=== PATIENT | female | born 1990 | race Caucasian/White ===

== ENCOUNTER 2022-01-26 13:07 | Emergency (ER) | payer OTHER, SELFPAY ==
[2022-01-26 13:19] VITALS: BP 128/86; PULSE 96; RESP 16; TEMP 36.6; O2SAT 97; BMI 39.2
--- NOTE | 2022-01-26 13:53 | ED.ALLEREA ---
HPI - Allergic Reaction General Date Seen: 01/26/22 Chief complaint: Allergic Reaction Stated complaint: Allergic Reaction Time Seen by Provider: 01/26/22 13:39 Source: patient Mode of arrival: ambulatory Limitations: no limitations History of Present Illness HPI narrative: Patient is a 31-year-old female who presents here for allergic reaction, she 1st went to Urgent Care was sent here. She noted the hives yesterday morning, took some loratadine for this, the hives are primarily on areas of exposed to clothing, but today seemed a little bit worse, she took 25 mg of Benadryl at 6:30 a.m. this morning, noted that her lips were swelling, and some tingling in the back of her throat. She then proceeded urgent care and was sent here. Has no problem speaking, swallowing, there is no nausea vomiting or diarrhea. She denies any shortness of breath or wheezing, does have a history of asthma but has not used her inhaler. She had an IUD out on Tuesday, no new medications, no other exposures notable. Denies any fevers or chills or viral type illness leading up to this. MD complaint: allergic reaction, hives and facial swelling Onset (ago): day(s) Exposure: unknown Symptoms: rash and lip swelling Severity: moderate Treatment prior to arrival: benadryl Previous Allergic Reaction History: none Related Data Home Medications Medication Instructions Recorded Confirmed albuterol sulfate 90 mcg/actuation 2 inhalation PRN 01/22/22 01/22/22 aerosol inhaler vits no.126-ferrous fum 1 tab PO DAILY 01/22/22 01/22/22 28 mg iron-folic acid 800 mcg tablet (Classic ) sertraline 50 mg tablet 50 mg PO QDAY 01/22/22 01/22/22 Previous Rx's Medication Instructions Recorded epinephrine 0.3 mg/0.3 mL 0.3 ml IM Q5-15M PRN #2 ea 01/26/22 injection, auto-injector prednisone 20 mg tablet 20 mg PO BID #10 tabs 01/26/22 Allergies Allergy/AdvReac Type Severity Reaction Status Date / Time No Known Drug Allergies Allergy Verified 01/26/22 13:22 Review of Systems Status of ROS Reports: 10 or more systems reviewed and unremarkable except as noted in History and below PFSH FORMERLY [facility], 1928–1983 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 Smoking Status: Never smoker How often do you have a drink containing alcohol: never AUDIT-C Alcohol total score: 0 Non-prescribed substance use: denies use service: No Exam Narrative: Exam Narrative: Patient is seen initially in the hallway then transferred to room 1, she is speaking to me in full sentences, there is no speech difficulty. She is nontoxic. Her pupils are equal round reactive to light there is no scleral icterus or redness to TMs are normal her oropharynx reveals some lip swelling, of around her lips, but there is no other or oropharyngeal swelling noted of her tongue or tonsils. Her neck is supple full range of motion, no meningismus, no lymphadenopathy. Her chest is good air entry bilaterally with no wheezing crackles noted easy respirations are noted, cardiovascular S1-S2 were normal there is no S3-S4 clicks murmurs or gallops noted, her abdomen is soft there is no guarding no organomegaly noted. And no tenderness. Her extremities are all normal normal neurologic function symmetrically strong, and proximally and distally muscle strength is assessed and normal, there is a rash consistent with urticaria noted primarily on her truncal region. Const: Vital Signs, click to edit/add: Vital Signs - 24 hr 01/26/22 13:19 01/26/22 14:27 01/26/22 15:00 Temperature 97.9 F Pulse Rate [Pulse Oximeter] 96 93 84 Respiratory Rate 16 16 16 Blood Pressure [Ri ght Upper Arm] 128/86 112/81 115/78 Pulse Oximetry 97 98 97 Oxygen Delivery Me thod Room Air Room Air Room Air 01/26/22 15:30 01/26/22 16:04 Temperature Pulse Rate [Pulse Oximeter] 84 97 Respiratory Rate 16 16 Blood Pressure [Ri ght Upper Arm] 109/81 112/76 Pulse Oximetry 97 98 Oxygen Delivery Me thod Room Air Room Air Documenting provider has reviewed patient's vital signs: yes Course Course Hospital Course: I evaluated the patient multiple times, during her time here she has watch for 4 hours, she remained stable both vital E, and her lip swelling decreased as did her rash, she felt comfortable to go home I think it would be reasonable let her go home, she can use some Benadryl for this along with prednisone, and I will give her an EpiPen I do not know what caused the allergic reaction, but there is clearly was some angioedema associated with this Vital Signs Vital signs: Initial Vital Signs Temperature 97.9 F 01/26/22 13:19 Temperature Source Oral 01/26/22 13:19 Pulse Rate 96 01/26/22 13:19 Pulse Rhythm 01/26/22 13:19 Pulse Strength 3+ Normal 01/26/22 13:19 Respiratory Rate 16 01/26/22 13:19 Blood Pressure 128/86 01/26/22 13:19 Blood Pressure Mean 100 01/26/22 13:19 Blood Pressure Position Sitting 01/26/22 13:19 Pulse Oximetry 97 01/26/22 13:19 Oxygen Delivery Method 01/26/22 13:19 Vital Signs Temperature 97.9 F 01/26/22 13:19 Pulse Rate 96 01/26/22 13:19 Respiratory Rate 16 01/26/22 13:19 Blood Pressure 128/86 01/26/22 13:19 Pulse Oximetry 97 01/26/22 13:19 Oxygen Delivery Method 01/26/22 13:19 Temperature 97.9 F 01/26/22 13:19 Pulse Rate 97 01/26/22 16:04 Respiratory Rate 16 01/26/22 16:04 Blood Pressure 112/76 01/26/22 16:04 Pulse Oximetry 98 01/26/22 16:04 Oxygen Delivery Method 01/26/22 16:04 MDM - Allergic Reaction MDM Narrative Medical decision making narrative: Differential diagnosis include but are not limited to contact dermatitis, allergic reaction, shingles, impetigo, seborrheic dermatitis, Michael Prince syndrome, ITP, meningococcus, HSP Differential Diagnosis Differential diagnosis: Likely anaphylaxis, allergic reaction, angioedema, contact dermatitis, adverse reaction to drug, viral enanthem and urticaria Medical Records Attestation: I reviewed the patient's medical records. Discharge Plan Discharge Clinical Impression: Urticaria, Angioedema, Allergic reaction Patient Disposition: Home, Self-Care Condition: Improved Instructions: Urticaria (ED), Angioedema (ED), General Allergic Reaction (ED) Additional Instructions: Home rest Benadryl 50 mg every 6 hours as this will make you tired, it will off set the fact the prednisone will make you slightly crazy, take the prednisone for 5 days, I will give you prescription for an EpiPen also, if increasing facial swelling, breathing problems, or other issues please come back. Not sure what caused this reaction, could be something as simple as a virus, about 50-60% of the time we never figure this out Prescriptions: New prednisone 20 mg tablet 20 mg PO BID Qty: 10 0RF epinephrine 0.3 mg/0.3 mL auto-injector 0.3 ml IM Q5-15M PRNQty: 2 0RF Rx Instructions: do not exceed 2 doses per episode No Action sertraline 50 mg tablet 50 mg PO QDAY Label Comments: TAKE 1/2 TABLET BY MOUTH EVERY DAY FOR 1 WEEK. INCREASE TO 1 TABLET Classic 28 mg iron- 800 mcg tablet 1 tab PO DAILY albuterol sulfate 90 mcg/actuation HFA aerosol inhaler 2 inhalation PRN Follow Up/Referrals: Rhoda Gusman MD [Primary Care Provider] - Stand Alone Forms: [employer] Info Instructions
[2022-01-26] MEDS: diphenhydrAMINE 25 MG CAPSULE 50 MG PO (13:54)
[2022-01-26] MEDS: predniSONE 20 MG TABLET 60 MG PO (13:54)
[2022-01-26] MEDS: EPINEPHrine 0.3 MG PEN IM (13:55)
--- OUTSIDE RECORDS SUMMARY | 2022-01-26 14:07 | XMS_ITS | Encounter Summary ---
:1990 Author Organization [facility] Address [address], [place] [address] Care Team Providers Name Role Phone Shakira Bright DO Primary Care Provider Reason for Referral Procedure/Equipment (Routine) - Incomplete Specialty Diagnoses / Procedures Referred By Contact Refer red To Contact Diagnoses Pain of left heel Samantha Paez MD Procedures Airselect Elite/Standard Tall Boot([id number]) [address] [place], [place] [address] Referral ID Status Reason Start Date Expiration Date Visits V isits Requested Authorized [id number] Incomplete 03/16/2017 06/15/2018 1 1 SCRIPT EVALUATOR Therapies (Routine) - Closed Specialty Diagnoses / Procedures Referred By Contact Refer red To Contact Physical Therapy Diagnoses Pain of left heel Samantha Paez MD [facility] [address] [place], [place] [address] [place] [address] Phone: Fax: Referral ID Status Reason Start Date Expiration Date Visits Requ ested Visits Authorized [id number] Closed 03/14/2017 05/13/2017 1 1 Scheduling Instructions Your provider has recommended an appoint ment with [facility]. You may call [phone] to schedule your appoi ntment. If you do not schedule an appointment within the next 1 to 3 business days, we will call you to help arrange your appointment. We suggest you call your [employer] insurance company about your coverage and benefits for this appointment. SCRIPT EVALUATOR Procedure/Equipment (Routine) - Incomplete Specialty Diagnoses / Procedures Referred By Contact Refer red To Contact Diagnoses Pain of left heel Samantha Paez MD Procedures XR Calcaneus Lt 2+ Views [address] [facility] [address] [place], [place] [address] Referral ID Status Reason Start Date Expiration Date Visits V isits Requested Authorized [id number] Incomplete 03/14/2017 06/13/2018 1 1 SCRIPT EVALUATOR Reason for Visit Reason Comments Foot Pain or Injury left Encounter Details Date Type Department Care Team Description 03/14/2017 Office Visit [facility] Samantha Miramontes V, Pain of left heel Orthopedic Urgent MD (Primary Dx) Care [address] [facility] [address] [facility] [place], [place] [address] [phone] 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 Tobacco Use Types Packs/Day Years Used Date Smoking Tobacco: Never Smokeless Tobacco: Never Alcohol Use Standard Drinks/Week Comments Yes 0 (1 standard drink = 0.6 oz pure alcoho l) Sex Assigned at Date Recorded Not on file documented as of this encounter Last Filed Vital Signs Vital Sign Reading Time Taken Comments Blood Pressure 151/85 03/14/2017 12:13 PM TRANSCRIPT EVALUATOR Pulse - - Temperature 36.6 ??C (97.9 ??F) 03/14/2017 12:13 PM TRANSCRIPT EVALUATOR Respiratory Rate - - Oxygen Saturation - - Inhaled Oxygen Concentration - - Weight - - Height - - Body Mass Index - - documented in this encounter Patient Instructions Patient InstructionsOralia Murcia RN - 03/14/2017 10:[address] Jeannine MD [facility] [place] Please fax all paperwork correspondence to [phone] [facility] Nurse Line: [phone] Please contact [facility] Nurse line for all requests and questions. Medication Requests: Prescriptions are not filled on Weekends or on Weekdays after 3:00PM For all medication refills: Request a refill using MyChart or contact your Pharmacy To schedule appointments:[phone] Physical therapy as ordered Boot as ordered by MD Follow up in 4-6 weeks SCRIPT EVALUATOR documented in this encounter Progress Notes Samantha Paez MD - 03/16/2017 12:38 PM CST NAME: JOLLY CAREY MR#: [id number] CSN: [id number] AUTHENTICATING CLINICIAN: Samantha Paez MD CONFIRM #: [id number] LOC: CLINIC PROGRESS NOTE DATE OF VISIT: 03/14/2017 : 1990 SUBJECTIVE: Jolly is a 26-year-old female, who presents for evaluation of left heel pain that has been presentfor the last 3-6 months but worse over the last 1 month. Symptoms began 3-6 months ago in both heelsalong the plantar aspect of the heel in the region of the medial calcaneus. She felt symptoms were related to plantar fasciitis and has been treating at home with stretching and arch support. She notesthat the right heel pain has completely resolved but she has had persistent symptoms in the left heel. Over the last 1 month, symptoms have been getting increasingly worse and she now notes pain in theregion of the left Achilles as well. She has been using ice, stretching, has been careful about wearing a good supportive shoe and using wat-ces-rwsyh arch support inserts. She does spend a lot of time on her feet each day. 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 This involves a lot of walking and standing. PAST MEDICAL HISTORY: Outlined and reviewed in Epic. CURRENT MEDICATIONS: Outlined and reviewed in Epic. ALLERGIES: Outlined and reviewed in [employer]. 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 REVIEW OF SYSTEMS: Negative for fever, rash, numbness or tingling, diabetes. She does have a history of reflux. PHYSICAL EXAM: VITAL SIGNS: Height 5 feet 7 inches, weight 247 pounds, blood pressure 131/85, temp 97.7. Pain is 4/10. GENERAL: Pleasant, 26-year-old female, no acute distress. LEFT HEEL: She is exquisitely tender with palpation along the medial aspect of the calcaneus, nontender with palpation over the plantar fascia itself, no palpable crepitation. She has a very tight heelcord and has significant tenderness with palpation at the Achilles tendon insertion on the calcaneus. She has minimal thickening of the Achilles tendon. The tendon is intact by palpation. She has a normal Kearney's test. She has a negative Homans sign. She is nontender over the medial and lateral malleoli or over the midfoot. She has moderate increase in heel pain with plantar and dorsiflexion of the foot against resistance. No pain with inversion or eversion against resistance. She has good cap refill, normal dorsalis pedis pulse and normal sensation. Calcaneal squeeze test is positive. IMAGING: X-ray of the calcaneus is done today and is negative for obvious fracture or sign of stress fracture. IMPRESSION: Left heel pain due to plantar fasciitis and Achilles tendinopathy. PLAN: 1.Diagnosis and treatment recommendations discussed with the patient. We discussed trial of conservative measures, and the patient is agreeable. Given the difficulty she is having with weightbearing, will try and quiet this down a bit by putting her in a boot. Will add 1 wedge if needed. As soon as she is comfortable, she may wean out of the wedge. As symptoms are improving, she will wean out of the walking boot. She can be weightbearing as tolerated in the boot. 2.We will start her on some physical therapy to address these issues as well. 3.We will see her back in 4-6 weeks for a recheck; however, we can see her back sooner if symptoms are not improving with the use of the boot. Would consider advanced imaging with MRI to rule out calcaneal stress fracture if that is the case. RVP:JOE C: R:03/16/17 12:38 CONFIRM#:[id number] SCRIPT EVALUATOR Michelle Garcia, RN - 03/14/2017 10:30 AM CST Blood pressure out of normal range. Patient advised to follow up with primary care provider regarding blood pressure reading today. Michelle Lopez, TRISTAN 03/14/2017, 12:14 PM SCRIPT EVALUATOR documented in this encounter Plan of Treatment Scheduled Referrals Name Type Priority Associated Diagnoses Order S chedule Physical Therapy Referral Routine Pain of left heel Ordere d: 03/14/2017 documented as of this encounter Results XR Calcaneus Lt 2+ Views (03/14/2017 1:20 PM TRANSCRIPT EVALUATOR) Anatomical Region Laterality Modality Lower Extremity, Foot, Foot & Ankle Comp uted Radiography Specimen (Source) Anatomical Collection Method Collection Time Re ceived Time Location / / Volume Laterality 03/14/2017 1:00 PM TRANSCRIPT EVALUATOR Narrative 03/14/2017 1:22 PM TRANSCRIPT EVALUATOR COMPARISON: ??None. FINDINGS: ??No significant bone or joint abnormality is noted. Procedure Note Marko Travis MD - 03/14/2017Formatti ng of this note might be different from the original. COMPARISON: None. FINDINGS: No significant bone or joint a bnormality is noted. Samantha Saravia MD RAD GD documented in this encounter Visit Diagnoses Diagnosis Pain of left heel - Primary Pain in limb Pain of left heel Pain in limb documented in this encounter Care Teams Configuration Engineer Relationship Specialty Start Date End Date Shakira Bright DO PCP - General Family Practice 02/02/16 [address] [place] [address] documented as of this encounter
--- OUTSIDE RECORDS SUMMARY | 2022-01-26 14:07 | XMS_ITS | Encounter Summary ---
:1990 Author Organization [facility] Address [address] [address] Care Team Providers Name Role Phone Shakira Bright DO Primary Care Provider Reason for Visit Reason Comments DEPRESSION ANXIETY Encounter Details Date Type Department Care Team Description 08/17/2016 Office Visit [facility] [address] Shakira Bright, De pression, major, single episode, moderate (HRC); Family Medicine DO SARAVANAN (generalized anxiety disorder) [address] [facility] [place] [address] [phone] (Wo rk) 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 Tobacco Use Types Packs/Day Years Used Date Smoking Tobacco: Never Alcohol Use Standard Drinks/Week Comments Yes 0 (1 standard drink = 0.6 oz pure alcoho l) Sex Assigned at Date Recorded Not on file documented as of this encounter Last Filed Vital Signs Vital Sign Reading Time Taken Comments Blood Pressure 116/62 08/17/2016 7:56 AM CDT Pulse 68 08/17/2016 7:56 AM CDT Temperature - - Respiratory Rate - - Oxygen Saturation - - Inhaled Oxygen Concentration - - Weight 115.3 kg (254 lb 3.2 oz) 08/17/2016 7:56 AM CDT Height - - Body Mass Index 39.81 02/12/2016 8:08 AM SURFACE ROOM SHOP OPTICIAN documented in this encounter Progress Notes Shakira Bright DO - 08/17/2016 8:00 AM CDT Subjective: Jolly Walker is a 26 y.o. female who presents for follow up of depression and anxiety. Current symptoms include hypersomnia, fatigue and feeling anxious. Patient denies recurrent thoughts of , suicidal thoughts without plan and suicidal thoughts with specific plan. She denies current suicidal and homicidal plan or intent. She complains of the following side effects from the treatment: none. Patient's medications, allergies, past medical, surgical, social and family histories were reviewed and updated as appropriate. Objective: BP 116/62 Pulse 68 Wt 254 lb 3.2 oz (115.3 kg) BMI 39.81 kg/m2 General: alert, cooperative, no distress, appears stated age Affect & Behavior: good grooming, full facial expressions, normal speech pattern and content, normal thought patterns, normal perception, good insight, normal reasoning Assessment: Depression, gradually improving Anxiety, gradually improving Plan: Rx: Celexa Handouts describing disease, natural history, and treatment were given to the patient. Reviewed concept of anxiety as biochemical imbalance of neurotransmitters and rationale for treatment. Instructed patient to contact office or on-call physician promptly should condition worsen or any new symptoms appear and provided on-call telephone numbers. IF THE PATIENT HAS ANY SUICIDAL OR HOMICIDAL IDEATION, CALL THE OFFICE, DISCUSS WITH A SUPPORT MEMBER, OR GO TO THE ER IMMEDIATELY. Patient was a greeable with this plan. Follow up: 3 months Spent 20 minutes (>50% of visit) discussing the risks of anxiety disorder, depression, the pathophysiology, etiology, risks, and principles of treatment. documented in this encounter Plan of Treatment Not on filedocumented as of this encounter Visit Diagnoses Diagnosis Depression, major, single episode, moder ate (HRC) Major depressive disorder, single episod e, moderate SARAVANAN (generalized anxiety disorder) (HRC) Generalized anxiety disorder documented in this encounter Care Teams Associate Professor Of Media Arts Relationship Specialty Start Date End Date Shakira Bright DO PCP - General Family Practice 02/02/[address] [place] [id number] documented as of this encounter
--- OUTSIDE RECORDS SUMMARY | 2022-01-26 14:07 | XMS_ITS | Encounter Summary ---
:1990 [facility] Address [address], [place] [address] Care Team Providers Name Role Phone Shakira Chaney DO Primary Care Provider Reason for Visit Reason Comments Refill citalopram (CELEXA) 20 MG ta blet [Pharmacy Med Name: CITALOPRAM HBR 20 MG TABLET] Encounter Details Date Type Department Care Team Description 02/03/[address] [facility] [address] Shakira Chaney, Re fill (citalopram Family Medicine DO (CELEXA) 20 MG tablet [address] [Ph armacy Med Name: [address] CITALOPRAM HBR 20 MG [place], [place] TA BLET]) [id number] (Wo rk) 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 Tobacco Use Types Packs/Day Years Used Date Smoking Tobacco: Never Alcohol Use Standard Drinks/Week Comments Yes 0 (1 standard drink = 0.6 oz pure alcoho l) Sex Assigned at Date Recorded Not on file documented as of this encounter Nursing Notes Dale Apple RN - 02/03/2017 8:50 AM CST Further assistance needed to complete refill request Reason: Medication newly ordered within past 12 months. Next Steps: Review pended order for accuracy. Sign if appropriate. Document if appt. or lab is needed for further refills. Route to [facility]. pool Requested Prescriptions Pending Prescriptions Disp Refills ??? citalopram (CELEXA) 20 MG tablet [Pharmacy Med Name: CITALOPRAM HBR 20 MG TABLET] 90 Tab 2 Sig: TAKE 1 TAB BY MOUTH DAILY. ECT DRILLING ENGINEER Interface, Out [employer]dex Prov Query - 02/03/2017 12:58 AM CST citalopram (CELEXA) 20 MG tablet [Pharmacy Med Name: CITALOPRAM HBR 20 MG TABLET] Medication started: 07/23/2016 Last ordered by SHAKIRA CHANEY: 08/17/2016 (170 days ago) QTY: 90, Refills: 1, Sig: take 1 tab by mouth daily. (unchanged) -> Refill x 9 months, qty: 90, refills: 2 (until due for an office visit) Last qualifying visit: 08/17/2016 (with SHAKIRA CHANEY) Next scheduled visit: None SBP: 116 mm Hg on 08/17/2016 DBP: 62 mm Hg on 08/17/2016 Powered by [employer], Reference: [id number], 02/03/2017 12:57:59 AM Jose Roberto DOAN: [id number] FM REFILL ([id number]) ECT DRILLING ENGINEER documented in this encounter Plan of Treatment Not on filedocumented as of this encounter Visit Diagnoses Diagnosis Depression, major, single episode, moder ate (HRC) Major depressive disorder, single episod e, moderate SARAVANAN (generalized anxiety disorder) (HRC) Generalized anxiety disorder documented in this encounter Care Teams Impregnating Tank Operator Relationship Specialty Start Date End Date Shakira Chaney DO PCP - General Family Practice 02/02/16 [address] [place] [address] documented as of this encounter
--- OUTSIDE RECORDS SUMMARY | 2022-01-26 14:07 | XMS_ITS | Encounter Summary ---
:1990 [facility] Address [address], [place] [address] Care Team Providers Name Role Phone Shakira Bright DO Primary Care Provider Reason for Referral Therapies (Routine) - Closed Specialty Diagnoses / Procedures Referred By Contact Refer red To Contact Diagnoses Vestibular neuronitis, unspecified laterality Shakira Bright DO [address] [place], [place] [address] Referral ID Status Reason Start Date Expiration Date Visits Requ ested Visits Authorized [id number] Closed 08/15/2017 10/14/2017 1 1 Scheduling Instructions Your provider has recommended an appoint ment with [facility]. You may call [phone] to schedule your a ppointment. If you do not schedule an appointment within the next 1 to 3 in , we will call you to help arrange your appointment. We suggest you call [employer] about your coverage and benefits for this appointme nt. Reason for Visit Reason Comments Follow-up Encounter Details Date Type Department Care Team Description 08/15/2017 Office Visit [facility] [address] Shakira Bright [address] [facility] DO neuronitis, [address] [facility] [address] laterality (Primary [place], [place]x ) [address] [phone] (Wo rk) 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 Tobacco Use Types Packs/Day Years Used Date Smoking Tobacco: Never Smokeless Tobacco: Never Alcohol Use Standard Drinks/Week Comments Yes 0 (1 standard drink = 0.6 oz pure alcoho l) occasionally Sex Assigned at Date Recorded Not on file documented as of this encounter Last Filed Vital Signs Vital Sign Reading Time Taken Comments Blood Pressure 112/80 08/15/2017 4:07 PM CDT Pulse 84 08/15/2017 4:07 PM CDT Temperature - - Respiratory Rate - - Oxygen Saturation - - Inhaled Oxygen Concentration - - Weight 122 kg (269 lb) 08/15/2017 4:07 PM CDT Height 170.2 cm (5' 7) 08/15/2017 4:07 PM CDT Body Mass Index 42.13 08/15/2017 4:07 PM CDT documented in this encounter Progress Notes Shakira Bright, DO - 08/15/2017 3:40 PM CDT Subjective: Patient ID: Jolly Lara is a 27 y.o. female. Chief Complaint: HPI Comments: About a month ago she came in presenting with extreme dizziness. At that time she could barely walk without holding onto something. She was diagnosed with vestibular neuritis. I treated her with a short course of steroids and gave her Zofran. After finishing this she was doing pretty well. She was good for approximately 2.5 weeks. Recently she has started having increasing dizzy sensation. After having a return of the dizziness she started having nausea. The nausea is related to any type of foods now. She is also been extremely fatigued. She did taken at home during test which was negative. It is very low risk that she has . She is coming in today because she wants to get ahead of the dizziness before his as extreme as it was last time. DIZZINESS This is a recurrent problem. The current episode started 1 to 4 weeks ago. The problem occurs intermittently. The problem has been waxing and waning. Associated symptoms include nausea and vertigo. Pertinent negatives include no abdominal pain, anorexia, arthralgias, change in bowel habit, chest pain,chills, congestion, coughing, diaphoresis, fatigue, fever, headaches, joint swelling, myalgias, neckpain, numbness, rash, sore throat, swollen glands, urinary symptoms, visual change, vomiting or weakness. Review of Systems Constitutional: Negative for chills, diaphoresis, fatigue and fever. HENT: Negative for congestion and sore throat. Respiratory: Negative for cough. Cardiovascular: Negative for chest pain. Gastrointestinal: Positive for nausea. Negative for abdominal pain, anorexia, change in bowel habit and vomiting. Musculoskeletal: Negative for arthralgias, joint swelling, myalgias and neck pain. Skin: Negative for rash. Neurological: Positive for dizziness and vertigo. Negative for weakness, numbness and headaches. Objective: Physical Exam Constitutional: She appears well-developed and well-nourished. HENT: Head: Normocephalic and atraumatic. Right Ear: External ear normal. Left Ear: External ear normal. Nose: Nose normal. Mouth/Throat: Oropharynx is clear and moist. No oropharyngeal exudate. Eyes: Conjunctivae are normal. Neck: Normal range of motion. Cardiovascular: Normal rate, regular rhythm and normal heart sounds. Pulmonary/Chest: Effort normal and breath sounds normal. No respiratory distress. Lymphadenopathy: She has no cervical adenopathy. Nursing note and vitals reviewed. Assessment: ICD-10-CM 1. Vestibular neuronitis, unspecified laterality H81.20 Physical Therapy Plan: I will restart her on a Medrol Dosepak. I have put in a referral for physical therapy to help with vestibular rehab. If this is not improving we may discuss a referral to neurology or a brain MRI. documented in this encounter Plan of Treatment Scheduled Referrals Name Type Priority Associated Diagnoses Order S chedule Physical Therapy Referral Routine Vestibular neuronitis, O rdered: 08/15/2017 unspecified laterality documented as of this encounter Visit Diagnoses Diagnosis Vestibular neuronitis, unspecified later ality - Primary documented in this encounter Care Teams Occ Med Physician Relationship Specialty Start Date End Date Shakira Bright DO PCP - General Family Practice 02/02/16 [address] [place] [address] documented as of this encounter
--- OUTSIDE RECORDS SUMMARY | 2022-01-26 14:07 | XMS_ITS | Encounter Summary ---
:1990 [facility] Address [address] [place] [address] Care Team Providers Name Role Phone Shakira Bright DO Primary Care Provider Reason for Visit Reason Comments Injection Encounter Details Date Type Department Care Team Description 01/07/2017 Nursing Visit [place] [address] Family Nurse, [id number] F Medicine [address] [place], [place] [address] 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 Tobacco Use Types Packs/Day Years Used Date Smoking Tobacco: Never Alcohol Use Standard Drinks/Week Comments Yes 0 (1 standard drink = 0.6 oz pure alcoho l) Sex Assigned at Date Recorded Not on file documented as of this encounter Plan of Treatment Not on filedocumented as of this encounter Visit Diagnoses Not on filedocumented in this encounter Administered Medications Inactive Administered Medications - up to 3 most recent administrations Medication Order MAR Action Action Date Dose Rate Site medroxyPROGESTERone Given 01/07/2017 10:51 150 mg Left Deltoid (DEPO-PROVERA) injection 150 mg AM CDT 150 mg, Intramuscular, EVERY 90 DAYS, First dose on Suzette 02/12/16 at 0830, Last dose on 11/08/16 at 0830, For 4 doses, Follow Depo Provera Policy Given 10/15/2016 10:46 AM CDT 150 mg Righ t Vastus Lateralis (Right Anterior Thigh) Given 05/05/2016 9:06 AM HEAD OF MATHEMATICS 150 mg Left Deltoid documented in this encounter Care Teams Sheet Rock Applier Relationship Specialty Start Date End Date Shakira Bright DO PCP - General Family Practice 02/02/16 [address] [place], [place] [address] documented as of this encounter
--- OUTSIDE RECORDS SUMMARY | 2022-01-26 14:07 | XMS_ITS | Encounter Summary ---
:1990 Author [facility] Address [address], [place] [address] Care Team Providers Name Role Phone Shakira Bright DO Primary Care Provider Reason for Referral Therapies (Routine) - Closed Specialty Diagnoses / Procedures Referred By Contact Refer red To Contact Diagnoses Vestibular neuronitis of both ears Shakira Bright DO [address] [place], [place] [address] Referral ID Status Reason Start Date Expiration Date Visits Requ ested Visits Authorized [id number] Closed 07/13/2017 09/11/2017 1 1 Scheduling Instructions Your provider has recommended an appoint ment with [facility]. You may call [phone] to schedule your a ppointment. If you do not schedule an appointment within the next 1 to 3 , we will call you to help arrange your appointment. We suggest you call [employer] about your coverage and benefits for this appointme nt. Reason for Visit Reason Comments MEDICATION CHECK DIZZINESS Encounter Details Date Type Department Care Team Description 07/13/[address] [facility] [address] Shakira Bright Ve stibular neuronitis Family Medicine DO of both ears (Primary [address] [facility] [address] [place] [address] [phone] (Wo rk) 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 Tobacco Use Types Packs/Day Years Used Date Smoking Tobacco: Never Smokeless Tobacco: Never Alcohol Use Standard Drinks/Week Comments Yes 0 (1 standard drink = 0.6 oz pure alcoho l) occasionally Sex Assigned at Date Recorded Not on file documented as of this encounter Last Filed Vital Signs Vital Sign Reading Time Taken Comments Blood Pressure 130/96 07/13/2017 3:05 PM CDT Pulse 102 07/13/2017 3:05 PM CDT Temperature - - Respiratory Rate - - Oxygen Saturation - - Inhaled Oxygen Concentration - - Weight 121 kg (266 lb 12.8 oz) 07/13/2017 3:05 PM CDT Height - - Body Mass Index 41.79 07/08/2017 11:44 AM CDT documented in this encounter Progress Notes Shakira Bright, DO - 07/13/2017 3:00 PM CDT Subjective: Patient ID: Jolly Lara is a 27 y.o. female. Chief Complaint: HPI Comments: Starting 3 days ago had abrupt onset of severe vertigo accompanied by nausea and vomiting. Hasn't really been able to keep anything griselda for the last 2 days. Yesterday was not even able towalk. Now having unsteady gait. Feels like she is drunk. Eyes can't look straight. Unable to read, watch tv, or do any activity. DIZZINESS This is a new problem. The current episode started in the past 7 days. The problem occurs constantly. The problem has been gradually worsening. Associated symptoms include nausea, vertigo and vomiting.Pertinent negatives include no abdominal pain, anorexia, arthralgias, change in bowel habit, chest pain, chills, congestion, coughing, diaphoresis, fatigue, fever, headaches, joint swelling, myalgias, neck pain, numbness, rash, sore throat, swollen glands, urinary symptoms, visual change or weakness. Nothing aggravates the symptoms. She has tried rest, sleep and lying down for the symptoms. The treatment provided no relief. Review of Systems Constitutional: Negative for chills, diaphoresis, fatigue and fever. HENT: Negative for congestion and sore throat. Respiratory: Negative for cough. Cardiovascular: Negative for chest pain. Gastrointestinal: Positive for nausea and vomiting. Negative for abdominal pain, anorexia and changein bowel habit. Musculoskeletal: Negative for arthralgias, joint swelling, myalgias and neck pain. Skin: Negative for rash. Neurological: Positive for dizziness and vertigo. Negative for weakness, numbness and headaches. Objective: Physical Exam Constitutional: She appears well-developed and well-nourished. HENT: Head: Normocephalic and atraumatic. Mouth/Throat: Oropharynx is clear and moist. Eyes: Right eye exhibits nystagmus. Left eye exhibits nystagmus (with head movement). Cardiovascular: Normal rate, regular rhythm and normal heart sounds. Pulmonary/Chest: Effort normal and breath sounds normal. No respiratory distress. She has no wheezes. Nursing note and vitals reviewed. Assessment: ICD-10-CM 1. Vestibular neuronitis of both ears H81.23 Physical Therapy Plan: Will treat with high dose prednisone then a taper. Gave zofran for nausea. Put in referral to physical therapy in case not improving over next couple days. Gave handout regarding information on vestibular neuritis. documented in this encounter Plan of Treatment Scheduled Referrals Name Type Priority Associated Diagnoses Order S chedule Physical Therapy Referral Routine Vestibular neuronitis of both Ordered: 07/13/2017 ears documented as of this encounter Visit Diagnoses Diagnosis Vestibular neuronitis of both ears - Summer alvarado Vestibular neuronitis documented in this encounter Care Teams Salt Refiner Relationship Specialty Start Date End Date Shakira Bright DO PCP - General Family Practice 02/02/16 [address] [place] [address] documented as of this encounter
--- OUTSIDE RECORDS SUMMARY | 2022-01-26 14:07 | XMS_ITS | Encounter Summary ---
:1990 Author Organization [facility] Address [address], [place] [address] Care Team Providers Name Role Phone Shakira Bright DO Primary Care Provider Reason for Visit Reason Comments Follow-up Encounter Details Date Type Department Care Team Description 04/21/2017 Office Visit [facility], Pain o f left heel Orthopedic Urgent DO (Primary Dx) Care [address] [facility] [address] [facility] [address] [place], [place] [address] [phone] 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 Tobacco Use Types Packs/Day Years Used Date Smoking Tobacco: Never Smokeless Tobacco: Never Alcohol Use Standard Drinks/Week Comments Yes 0 (1 standard drink = 0.6 oz pure alcoho l) Sex Assigned at Date Recorded Not on file documented as of this encounter Last Filed Vital Signs Vital Sign Reading Time Taken Comments Blood Pressure - - Pulse - - Temperature 36.4 ??C (97.5 ??F) 04/21/2017 9:48 AM WASHING AND SCREENING PLANT SUPERVISOR Respiratory Rate - - Oxygen Saturation - - Inhaled Oxygen Concentration - - Weight - - Height - - Body Mass Index - - documented in this encounter Patient Instructions Patient InstructionsAlex Rosenthal MA - 04/21/2017 10:[address] Gato Hilton, DO [facility] [place] Please fax all paperwork correspondence to [phone] [facility] Nurse Line: [phone] Please contact [facility] Nurse line for all requests and questions. Medication Requests: Prescriptions are not filled on Weekends or on Weekdays after 3:00PM For all medication refills: Request a refill using MyChart or contact your Pharmacy To schedule appointments:[phone] Wean out of boot over the next 1-2 weeks Follow up as needed ING AND SCREENING PLANT SUPERVISOR documented in this encounter Progress Notes Jesse Hilton DO - 04/21/2017 12:00 PM CST NAME: JOLLY LARA MR#: [id number] CSN: [id number] AUTHENTICATING CLINICIAN: Jesse Hilton DO CONFIRM #: [id number] LOC: CLINIC PROGRESS NOTE DATE OF VISIT: 04/21/2017 : 1990 HISTORY OF PRESENT ILLNESS: This is a 27-year-old female who presents for followup regarding left foot pain. She was last seen by my colleague, Dr. Paez, on 03/14/2017, with discomfort to her heel and ankle that had been present for the past few months. She had findings consistent with plantar fasciitis as well as Achilles tendinopathy. She was placed in a boot with a wedge and has been weightbearing as tolerated in her boot.She presents today for followup. She states that she has currently been wearing her boot about 50% of the time. There was an order placed for physical therapy but she has not started this due to insurance issues. She has questions regarding further advancing. Her pain is a 1 to 2/10 in severity and she points to the posterior aspect of her heel when describing her discomfort. She has been able to ambulate without her boot on at home and seems to be doing well. She notes some improvement when she wears good supportive shoe wear and she has questions regarding shoe wear. PAST MEDICAL HISTORY: Reviewed and updated. MEDICATIONS: Per Epic. ALLERGIES: No known drug allergies. PHYSICAL EXAM: VITAL SIGNS: Temperature 97.5. GENERAL: This is a well-appearing 27-year-old female. She appears comfortable and in no distress. Normal appearance to gait out of her boot. MUSCULOSKELETAL: Left lower extremity exam shows no visible swelling. She is nontender over her calf. No point tenderness over theentirety of her Achilles tendon. No palpable defects appreciated. No point tenderness to her medial or lateral malleolus and nontender over her lateral ankle ligaments. She has some slight discomfort over the proximal insertion of her plantar fascia. She has no palpable defects to her plantar fascia region. No pain on calcaneal squeeze. Sensation is grossly intact to her left lower extremity. ASSESSMENT: Left heel pain secondary to plantar fasciitis and Achilles tendinopathy. PLAN: She is now over 1 month out from her last visit. She has still been using her boot and I encouraged her to wean out of her boot at this time. We discussed the possibility of weaning out of her boot slowly over the next 1-2 weeks and she is in favor of this. We also discussed the possibility of physical therapy, but she would like to hold off due to insurance issues. She will notify us if she wishes to pursue PT. I recommended good supportive shoe wear and possibility of heel pad into her shoe. She will advance as pain allows and will follow up here on an as-needed basis. NIDHI:MEDQ C: R:04/21/17 11:14 CONFIRM#:[id number] ING AND SCREENING PLANT SUPERVISOR documented in this encounter Plan of Treatment Not on filedocumented as of this encounter Visit Diagnoses Diagnosis Pain of left heel - Primary Pain in limb documented in this encounter Care Teams Client Support Consultant Relationship Specialty Start Date End Date Shakira Bright DO PCP - General Family Practice 02/02/16 [address] [place] [address] documented as of this encounter
--- OUTSIDE RECORDS SUMMARY | 2022-01-26 14:07 | XMS_ITS | Encounter Summary ---
:1990 [facility] Address [address] [address] Care Team Providers Name Role Phone Shakira Bright DO Primary Care Provider Reason for Visit Reason Comments Injection Depo-Provera Encounter Details Date Type Department Care Team Description 10/15/[address] [facility] [address] Nurse, [id number] F[facility] Trevor nter for Family Medicine contraceptive [address] [facility] managemen t, [address] type (Primary Dx) [place], [place] [address] 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 Tobacco Use Types Packs/Day Years Used Date Smoking Tobacco: Never Alcohol Use Standard Drinks/Week Comments Yes 0 (1 standard drink = 0.6 oz pure alcoho l) Sex Assigned at Date Recorded Not on file documented as of this encounter Plan of Treatment Not on filedocumented as of this encounter Procedures Procedure Name Priority Date/Time Associated Diagnosis Comme nts TEST Routine 10/15/2016 10:08 Encounter for Results for this (URINE) AM CDT contraceptive procedure are in management, the results unspecified type section. documented in this encounter Results Test Screen Urine (10/15/2016 10:08 AM CDT) P athologist Signature Urine Negative PN SOFT Test Specimen Anatomical Collection Method Collection Time Receive d Time (Source) Location / / Volume Laterality Urine specimen 10/15/2016 10:08 7 (specimen) AM CDT 10:08 AM CDT Narrative PN SOFT - 10/15/2016 10:13 AM CDT Performed at [facility], [address] [place] [address] CLIA number [id number] Shakira Bright DO LAB_1 Performing Organization Address City/State/ZIP Code Phon e Number PN SOFT [address] [place] [address] documented in this encounter Visit Diagnoses Diagnosis Encounter for contraceptive management, unspecified type - Primary documented in this encounter Administered Medications Inactive Administered [...] (Right Anterior Thigh) Given 05/05/2016 9:06 AM RESIDENT PHYSICIAN IN RADIOLOGY 150 mg Left Deltoid documented in this encounter Care Teams Document Design Specialist Relationship Specialty Start Date End Date Shakira Bright DO PCP - General Family Practice 02/02/16 [address] [place] [address] documented as of this encounter
--- OUTSIDE RECORDS SUMMARY | 2022-01-26 14:07 | XMS_ITS | Encounter Summary ---
:1990 [facility] Address [address] [address] Care Team Providers Name Role Phone Shakira Bright DO Primary Care Provider Reason for Visit Reason Comments Follow-up PHQ-9 Encounter Details Date Type Department Care Team Description 07/23/2016 Office Visit [facility] 385 Shakira Bright ssion, major, single episode, moderate (HRC) (Primary Dx); Family Medicine L, DO SARAVANAN (generalized anxiety disorder); [address] for TD vaccine; [address] Encounter for contraceptive management, [place] [address] [phone] 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 Tobacco Use Types Packs/Day Years Used Date Smoking Tobacco: Never Alcohol Use Standard Drinks/Week Comments Yes 0 (1 standard drink = 0.6 oz pure alcoho l) Sex Assigned at Date Recorded Not on file documented as of this encounter Last Filed Vital Signs Vital Sign Reading Time Taken Comments Blood Pressure 132/80 07/23/2016 2:27 PM CDT Pulse 92 07/23/2016 2:27 PM CDT Temperature - - Respiratory Rate - - Oxygen Saturation - - Inhaled Oxygen Concentration - - Weight 116.7 kg (257 lb 3.2 oz) 07/23/2016 2:27 PM CDT Height - - Body Mass Index 40.28 02/12/2016 8:08 AM SAP DIRECTOR documented in this encounter Patient Instructions Patient InstructionsShakira Bright DO - 07/23/2016 2:39 PM CDT Beating the Blues BOUNCE BACK FROM EVERYDAY STUFF THAT MAKES YOU FEEL BLUE How can it help me? Beating the Blues teaches you helpful ways to manage your mood, stress and anxiety all in the privacy and comfort of your own home. How does it work? Beating the Blues is a free, online program that lets you go at your own pace to learn ways to better manage your mood, stress and anxiety. ?? Also works on tablets so it can go where you go ?? Has helpful videos to keep you interested and motivated ?? Helps you put what you've learned into practice ?? Uses proven techniques to help improve your mood. It's easy to get started! 1. Visit: [email or web address] 2. Select the 'Get Started' button. 3. You will see a log-in menu: ?? Existing users: Log in with user name and password. ?? New users: Under the user log in box, select the 'Please Activate' hyperlink. 1. Enter this activation code: [id number] ([address] [place] [address]) 2. Complete the short online registration. You will need your insurance ID 3. Once completed - to finalize your registration, you will receive an email from with a link to confirm your email address. Your privacy is important to us. Beating the Blues is confidential. If you have any questions, forgot your log-in information or need an activation code, please call [facility] [phone]. documented in this encounter Progress Notes Shakira Bright DO - 07/23/2016 2:53 PM CDT Subjective: Jolly Walker is a 26 y.o. female who presents for follow up of depression and anxiety. Current symptoms include insomnia, fatigue, difficulty concentrating and feeling anxious. Patient denies recurrent thoughts of and suicidal thoughts without plan. She denies current suicidal and homicidal plan or intent. She complains of the following side effects from the treatment: none. 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 She feels like it was helping but now her depression is better buther anxiety has worsened. Patient's medications, allergies, past medical, surgical, social and family histories were reviewed and updated as appropriate. Objective: BP 132/80 mmHg Pulse 92 Wt 257 lb 3.2 oz (116.665 kg) General: alert, cooperative, no distress, appears stated [...] a greeable with this plan. Follow up: 4 weeks Spent 20 minutes (>50% of visit) discussing the risks of anxiety disorder, and depression, the pathophysiology, etiology, risks, and principles of treatment. documented in this encounter Plan of Treatment Not on filedocumented as of this encounter Visit Diagnoses Diagnosis Depression, major, single episode, moder ate (HRC) - Primary Major depressive disorder, single episod e, moderate SARAVANAN (generalized anxiety disorder) (HRC) Generalized anxiety disorder Need for Td vaccine Need for prophylactic vaccination with t etanus-diphtheria (Td) Encounter for contraceptive management, unspecified type documented in this encounter Administered Medications Inactive Administered Medications - up to 3 most recent administrations Medication Order MAR Action Action Date Dose Rate Site medroxyPROGESTERone Given 07/23/2016 3:15 PM 150 mg Left Deltoid (DEPO-PROVERA) injection 150 mg CDT 150 mg, Intramuscular, ONCE, On Tue07/23/16 at 1515, For 1 dose, Follow Depo Provera Policy documented in this encounter Care Teams Clinical Support Associate Relationship Specialty Start Date End Date Shakira Bright DO PCP - General Family Practice 02/02/16 [address] [place] [address] documented as of this encounter
--- OUTSIDE RECORDS SUMMARY | 2022-01-26 14:07 | XMS_ITS | Encounter Summary ---
:1990 Author Organization [facility] Address [address] [address] Care Team Providers Name Role Phone Shakira Bright DO Primary Care Provider Encounter Details Date Type Department Care Team Description 09/17/2019 Notes/Orders [facility] Shakira Bright, En counter for Practice DO screening for other [address] [facility] viral diseases [place], [place] [address] [phone] [place], [place] [phone] (Wo rk) 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 Tobacco Use Types Packs/Day Years Used Date Smoking Tobacco: Never Smokeless Tobacco: Never Alcohol Use Standard Drinks/Week Comments Yes 0 (1 standard drink = 0.6 oz pure alcoho l) occasionally Sex Assigned at Date Recorded Not on file documented as of this encounter Plan of Treatment Not on filedocumented as of this encounter Results Symptomatic - 2019 Novel Coronavirus (COVID-19) (09/17/2019 2:03 PM CDT) [facility] Method Time Signature COVID-19 Not Not 09/18/2019 [facility] Interpretation Detected Detected 1:24 PM CENTRAL LAB CDT Specimen Anatomical Collection Method Collection Time Receive d Time (Source) Location / / Volume Laterality Swab (Source Non-blood 09/17/2019 2:03 PM 0 4:04 Required) Collection / CDT PM CDT Unknown Narrative [facility] CENTRAL LAB - 09/18/2019 1:24 PM CDT Testing has been performed by [employer]. This test has been authorized by the FDA under an Emergency Use Authorization (EUA) for use by authorized laboratories. Shakira Bright DO LAB_1 Performing Organization Address City/State/ZIP Code Phon e Number [facility] [address] [address] documented in this encounter Visit Diagnoses Diagnosis Encounter for screening for other viral diseases documented in this encounter Care Teams Implementation Project Manager Relationship Specialty Start Date End Date Shakira Bright DO PCP - General Family Practice 02/02/16 [address] [place] [address] documented as of this encounter
--- OUTSIDE RECORDS SUMMARY | 2022-01-26 14:07 | XMS_ITS | Encounter Summary ---
:1990 [facility] Address [address], [place] [address] Care Team Providers Name Role Phone Shakira Bright DO Primary Care Provider Reason for Visit Reason Onset Date Comments APPOINTMENT REQUEST 07/14/2016 Encounter Details Date Type Department Care Team Description 07/14/2016 Telephone [facility] [address] Shakira Bright, AP POINTMENT REQUEST Family Medicine DO [address] [facility] [address] [facility] [phone] (Wo rk) 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 Tobacco Use Types Packs/Day Years Used Date Smoking Tobacco: Never Alcohol Use Standard Drinks/Week Comments Yes 0 (1 standard drink = 0.6 oz pure alcoho l) Sex Assigned at Date Recorded Not on file documented as of this encounter Nursing Notes Luz Pryor, TRISTAN - 07/14/2016 1:45 PM CDT Spoke with pt. Was advised via CloudFXhart needs to schedule f/u appt Future Appointments Date Time Provider Department Center 07/23/2016 2:30 PM Shakira Bright, [id number] [facility] [id number] documented in this encounter Plan of Treatment Not on filedocumented as of this encounter Visit Diagnoses Not on filedocumented in this encounter Care Teams Technical Support Specialist Relationship Specialty Start Date End Date Shakira Bright DO PCP - General Family Practice 02/02/16 [address] [place] [address] documented as of this encounter
--- OUTSIDE RECORDS SUMMARY | 2022-01-26 14:07 | XMS_ITS | Encounter Summary ---
:1990 Author Organization [facility] Address [address] [address] Care Team Providers Name Role Phone Shakira Bright DO Primary Care Provider Encounter Details Date Type Department Care Team Description 02/12/2016 Lab Visit [facility] 3850 Screening for diabetes mellitus; Laboratory Screening for cholesterol le ade; [address] Screening for thyroid disord er [place], [place] [id number] 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 Tobacco Use Types Packs/Day Years Used Date Smoking Tobacco: Never Alcohol Use Standard Drinks/Week Comments Yes 0 (1 standard drink = 0.6 oz pure alcoho l) Sex Assigned at Date Recorded Not on file documented as of this encounter Plan of Treatment Not on filedocumented as of this encounter Procedures Procedure Name Priority Date/Time Associated Diagnosis Comme nts TSH AND FREE T4 Routine 02/12/2016 8:58 AM Screening for Resul ts for this (FRT4 IF TSH RECLAIMER thyroid disorder procedure a re in ABNORM) the results section. LIPID PANEL AND Routine 02/12/2016 8:58 AM Screening for Resul ts for this DIRECT LDL(IF RECLAIMER cholesterol level procedure are in NEEDED) the results section. GLUCOSE - FASTING > Routine 02/12/2016 8:58 AM Screening for R esults for this 8 HRS FASTING RECLAIMER diabetes mellitus procedure are in the results section. documented in this encounter Results TSH And Free T4 (FRT4 If TSH Abnorm) (02/12/2016 8:58 AM RECLAIMER) P athologist Signature Thyroid 1.13 0.20 - PN SOFT Stimulating 4.50 Hormone uIU/mL Specimen Anatomical Collection Method Collection Time Receive d Time (Source) Location / / Volume Laterality 02/12/2016 8:58 AM 6 RECLAIMER 11:19 AM RECLAIMER Narrative PN SOFT - 02/12/2016 12:02 PM RECLAIMER Performed at [address] [address] CLIA number [id number] Shakira Bright DO LAB_1 Performing Organization Address [facility] Phon e Number PN SOFT [address] [place] [address] Lipid Panel - LDLD If Trig High (02/12/2016 8:58 AM RECLAIMER) Analysis Performed At Patho logist Time Signature Cholesterol 175 0 - 199 PN SOFT mg/dL Triglycerides 56 4 - 149 PN SOFT mg/dL HDL Cholesterol 53 >39 mg/dL PN SOFT Cholesterol/HDL 3.3 PN SOFT Ratio Screen LDL Calculated 111 19 - 130 PN SOFT mg/dL Length Of Fast 12.0 PN SOFT Specimen Anatomical Collection Method Collection Time Receive d Time (Source) Location / / Volume Laterality 02/12/2016 8:58 AM 6 8:58 RECLAIMER AM RECLAIMER Narrative PN SOFT - 02/12/2016 9:36 AM RECLAIMER Performed at [address] [address] CLIA number [id number] Shakria Bright DO LAB_1 Performing Organization Address [facility] e Number PN SOFT [address] [place] [address] Glucose (02/12/2016 8:58 AM RECLAIMER) P athologist Signature Lab Glucose 99 70 - 100 PN SOFT mg/dL Comment: The stated glucose range is for the fast ing state. Non-fasting glucose range is 70-180 mg/d L Specimen Anatomical Collection Method Collection Time Receive d Time (Source) Location / / Volume Laterality 02/12/2016 8:58 AM 6 8:58 RECLAIMER AM RECLAIMER Narrative PN SOFT - 02/12/2016 9:36 AM RECLAIMER Performed at [address], [place] [address] CLIA number [id number] Shakira Bright DO LAB_1 Performing Organization Address City/State/ZIP Code Phon e Number PN SOFT [address] [place] [address] [phone] documented in this encounter Visit Diagnoses Diagnosis Screening for diabetes mellitus Screening for cholesterol level Screening for lipoid disorders Screening for thyroid disorder documented in this encounter Care Teams Ring Barker Operator Relationship Specialty Start Date End Date Shakira Bright DO PCP - General Family Practice 02/02/16 [address] [place] [address] documented as of this encounter
--- OUTSIDE RECORDS SUMMARY | 2022-01-26 14:07 | XMS_ITS | Encounter Summary ---
:1990 Author Organization [facility] Address [address], [place] [address] Care Team Providers Name Role Phone Shakira Bright DO Primary Care Provider Reason for Referral Consult/Transfer Care (Routine) - Incomplete Specialty Diagnoses / Procedures Referred By Contact Refer red To Contact Diagnoses Depression, major, single episode, moderate (HRC) Shakira Bright DO [address] [place], [place] [address] Referral ID Status Reason Start Date Expiration Date Visits V isits Requested Authorized [id number] Incomplete 02/12/2016 05/13/2017 1 1 Scheduling Instructions Your provider has recommended an appoint ment with Behavioral Health. You may call [phone] to schedule your appointmen t. This recommended service/s may not be covered by your health plan (health insu sandra). To find out your specific benefit coverage, please call the number on your insurance card. Please note that in order to maintain access for all patients, [facility] does have a late cancellation policy. Appointments should be cancelled at least 24 hours in advance. We request you that you arrive 30 minutes before your f irst appointment to complete paperwork. MER AND BORER MACHINE OPERATOR Reason for Visit Reason Comments ROUTINE HEALTH MAINTENANCE Esophageal Reflux Encounter Details Date Type Department Care Team Description 02/12/2016 Office Visit [facility] [address] Shakira Bright Well woman exam (no gynecological exam) (Primary Dx); Family Medicine DO Stuart Gastroesophageal reflux disease, esophag itis presence not specified; [address] Depressio n, major, single episode, moderate (HRC); [address] Encounter for initial prescription of in jectable contraceptive; [facility] [place] Ada ruiz for diabetes mellitus; [place] [address] Screening for cholesterol level; [phone] Screening for t hyroid disorder (Work) 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 Tobacco Use Types Packs/Day Years Used Date Smoking Tobacco: Never Alcohol Use Standard Drinks/Week Comments Yes 0 (1 standard drink = 0.6 oz pure alcoho l) Sex Assigned at Date Recorded Not on file documented as of this encounter Last Filed Vital Signs Vital Sign Reading Time Taken Comments Blood Pressure 126/85 02/12/2016 8:08 AM TRIMMER AND BORER MACHINE OPERATOR Pulse 71 02/12/2016 8:08 AM TRIMMER AND BORER MACHINE OPERATOR Temperature - - Respiratory Rate - - Oxygen Saturation - - Inhaled Oxygen Concentration - - Weight 114.3 kg (252 lb) 02/12/2016 8:08 AM TRIMMER AND BORER MACHINE OPERATOR Height 170.2 cm (5' 7) 02/12/2016 8:08 AM TRIMMER AND BORER MACHINE OPERATOR Body Mass Index 39.47 02/12/2016 8:08 AM TRIMMER AND BORER MACHINE OPERATOR documented in this encounter Progress Notes Shakira Bright DO - 02/12/2016 8:50 AM CST Subjective: Jolly Walker is a 25 y.o. female and is here for a comprehensive physical exam. The patient reports problems - patient has been having reflux. She states that in the past since herteen years she has had it once in a while but lately it has been more frequent. She has been taking Tums. She does not think that they have been helping. She has not known of anything else she can try.She does not drink coffee. She does not eat spicy food. She has little acidic foods. She also is concerned about her mental health. She has a strong family history of depression. She has been sleeping a lot, overeating and just feeling depressed. She does not want to try medication at this time but is willing to talk to a therapist. History: LMP: No LMP recorded. Patient has had an injection. Last pap date: 2014 Abnormal pap? no : 0 Para: 0 Patient's medications, allergies, past medical, surgical, social and family histories were reviewed and updated as appropriate. Do you take any herbs or supplements that were not prescribed by a doctor? no Are you taking calcium supplements? no Are you taking aspirin daily? no Review of Systems Do you have pain that bothers you in your daily life? no See scanned ROS sheet Objective: General Appearance: Alert, cooperative, no distress, appears stated age Head: Normocephalic, without obvious abnormality, atraumatic Eyes: PERRL, conjunctiva/corneas clear, EOM's intact, fundi benign, both eyes Ears: Normal TM's and external ear canals, both ears Nose: Nares normal, septum midline, mucosa normal, no drainage or sinus tenderness Throat: Lips, mucosa, and tongue normal; teeth and gums normal Neck: Supple, symmetrical, trachea midline, no adenopathy; thyroid: no enlargement/tenderness/nodules; no carotid bruit or JVD Back: Symmetric, no curvature, ROM normal, no CVA tenderness Lungs: Clear to auscultation bilaterally, respirations unlabored Chest Wall: No tenderness or deformity Heart: Regular rate and rhythm, S1 and S2 normal, no murmur, rub or gallop Breast Exam: No tenderness, masses, or nipple abnormality Abdomen: Soft, non-tender, bowel sounds active all four quadrants, no masses, no organomegaly Genitalia: deferred Rectal: deferred Extremities: Extremities normal, atraumatic, no cyanosis or edema Pulses: 2+ and symmetric all extremities Skin: Skin color, texture, turgor normal, no rashes or lesions Lymph nodes: Cervical, supraclavicular, and axillary nodes normal Neurologic: CNII-XII intact, normal strength, sensation and reflexes throughout Assessment: Healthy female exam. Depression, GERD Plan: 1. Fasting labs drawn today. 2. Patient Counseling: --Nutrition: Stressed importance of moderation in sodium/caffeine intake, saturated fat and cholesterol, caloric balance, sufficient intake of fresh fruits, vegetables, fiber, calcium, iron, and 1 mg of folate supplement per day (for females capable of ). --Exercise: Stressed the importance of regular exercise. --Substance Abuse: Discussed cessation/primary prevention of tobacco, alcohol, or other drug use; driving or other dangerous activities under the influence; availability of treatment for abuse. --Sexuality: Discussed sexually transmitted diseases, partner selection, use of condoms, avoidance of unintended and contraceptive alternatives. --Injury prevention: Discussed safety belts, safety helmets, smoke detector, smoking near bedding orupholstery. --Dental health: Discussed importance of regular tooth brushing, flossing, and dental visits. --Immunizations reviewed. --After hours service discussed with patient 3. Follow up in one year 4. Referral to mental health for therapy. 5. Will try Zantac twice a day for acid reflux. MER AND BORER MACHINE OPERATOR documented in this encounter Plan of Treatment Scheduled Referrals Name Type Priority Associated Diagnoses [facility] Referral Routine Depression, major, Orde red: 02/12/2016 Adult/Peds single episode, moderate (HRC) documented as of this encounter Results TSH And Free T4 (FRT4 If TSH Abnorm) (02/12/2016 8:58 AM TRIMMER AND BORER MACHINE OPERATOR) athologist Signature Thyroid 1.13 0.20 - PN SOFT Stimulating 4.50 Hormone uIU/mL Specimen Anatomical Collection Method Collection Time Receive d Time (Source) Location / / Volume Laterality 02/12/2016 8:58 AM 6 TRIMMER AND BORER MACHINE OPERATOR 11:19 AM TRIMMER AND BORER MACHINE OPERATOR Narrative PN SOFT - 02/12/2016 12:02 PM TRIMMER AND BORER MACHINE OPERATOR Performed at [facility], [address] [place] [address] CLIA number [id number] Shakira Bright DO LAB_1 Performing Organization Address City/State/ZIP Code Phon e Number PN SOFT [address] [place] [address] Lipid Panel - LDLD If Trig High (02/12/2016 8:58 AM TRIMMER AND BORER MACHINE OPERATOR) [facility] Signature Cholesterol 175 0 - [...] Volume Laterality 02/12/2016 8:58 AM 6 8:58 TRIMMER AND BORER MACHINE OPERATOR AM TRIMMER AND BORER MACHINE OPERATOR Narrative PN SOFT - 02/12/2016 9:36 AM TRIMMER AND BORER MACHINE OPERATOR Performed at [facility], [address] [place] [address] CLIA number [id number] Shakira Bright DO LAB_1 Performing Organization Address [facility] Phon e Number PN SOFT [address] [place] [address] Glucose (02/12/2016 8:58 AM TRIMMER AND BORER MACHINE OPERATOR) P athologist Signature Lab Glucose 99 70 - 100 PN SOFT mg/dL Comment: The stated glucose range is for the fast ing state. Non-fasting glucose range is 70-180 mg/d L Specimen Anatomical Collection Method Collection Time Receive d Time (Source) Location / / Volume Laterality 02/12/2016 8:58 AM 6 8:58 TRIMMER AND BORER MACHINE OPERATOR AM TRIMMER AND BORER MACHINE OPERATOR Narrative DEBORAH SOFT - 02/12/2016 9:36 AM TRIMMER AND BORER MACHINE OPERATOR Performed at [facility], [address] [place] [address] CLIA number [id number] Shakira Bright DO LAB_1 Performing Organization Address [facility] Phon e Number DEBORAH SOFT [address] [place] [address] documented in this encounter Visit Diagnoses Diagnosis Well woman exam (no gynecological exam) - Primary Routine general medical examination at a health care facility Gastroesophageal reflux disease, esophag itis presence not specified Depression, major, single episode, moder ate (HRC) Major depressive disorder, single episod e, moderate Encounter for initial prescription of in jectable contraceptive General counseling for initiation of oth er contraceptive measures Screening for diabetes mellitus Screening for cholesterol level Screening for lipoid disorders Screening for thyroid disorder Screening for diabetes mellitus Screening for cholesterol level Screening for lipoid disorders Screening for thyroid disorder documented in this encounter Administered Medications Inactive [...] (Right Anterior Thigh) Given 05/05/2016 9:06 AM TRIMMER AND BORER MACHINE OPERATOR 150 mg Left Deltoid documented in this encounter Care Teams Machine Builder Relationship Specialty Start Date End Date Shakira Bright DO PCP - General Family Practice 02/02/16 [address] [place] [address] documented as of this encounter
--- OUTSIDE RECORDS SUMMARY | 2022-01-26 14:07 | XMS_ITS | Encounter Summary ---
:1990 Author Organization [facility] Address [address], [place] [address] Care Team Providers Name Role Phone Shakira Bright DO Primary Care Provider Reason for Visit Reason Comments Injection Encounter Details Date Type Department Care Team Description 04/14/2017 Nursing Visit [facility] 3850 Nurse, P3850 Fp Trevor nter for Family Medicine contraceptive [address] [facility], unspecified [facility]. type (Primary Dx) [place], [place] [id number] 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 Tobacco Use Types Packs/Day Years Used Date Smoking Tobacco: Never Smokeless Tobacco: Never Alcohol Use Standard Drinks/Week Comments Yes 0 (1 standard drink = 0.6 oz pure alcoho l) Sex Assigned at Date Recorded Not on file documented as of this encounter Plan of Treatment Not on filedocumented as of this encounter Results Test Screen Urine (04/14/2017 9:21 AM DIGITAL MARKETING SPECIALIST) P athologist Signature Urine Negative PN SOFT Test Specimen Anatomical Collection Method Collection Time Receive d Time (Source) Location / / Volume Laterality Urine specimen 04/14/2017 9:21 AM 018 9:21 (specimen) DIGITAL MARKETING SPECIALIST AM DIGITAL MARKETING SPECIALIST Narrative PN SOFT - 04/14/2017 9:21 AM DIGITAL MARKETING SPECIALIST Performed at [facility], [address] [facility], [place] [address] CLIA number [id number] Shakira Bright DO LAB_1 Performing Organization Address City/State/ZIP Code Phon e Number PN SOFT [address] [place] [address] [phone] documented in this encounter Visit Diagnoses Diagnosis Encounter for contraceptive management, unspecified type - Primary Encounter for contraceptive management, unspecified type documented in this encounter Administered Medications Inactive Administered Medications - up to 3 most recent administrations Medication Order MAR Action Action Date Dose Rate Site medroxyPROGESTERone Given 07/08/2017 11:56 150 mg Right Deltoid (DEPO-PROVERA) injection 150 mg AM CDT 150 mg, Intramuscular, EVERY 90 DAYS, First dose on Suzette 04/14/17 at 1000, Last dose on 01/09/18 at 1000, For 4 doses, Follow Depo Provera Policy Given 04/14/2017 9:37 AM DIGITAL MARKETING SPECIALIST 150 mg Left Deltoid documented in this encounter Care Teams Cook Helper Preserves Relationship Specialty Start Date End Date Shakira Bright DO PCP - General Family Practice 02/02/16 [address] [place], [place] [address] documented as of this encounter
--- OUTSIDE RECORDS SUMMARY | 2022-01-26 14:07 | XMS_ITS | Encounter Summary ---
:1990 Author Organization [facility] Address [address] [place] [address] Care Team Providers Name Role Phone Shakira Bright DO Primary Care Provider Reason for Visit Reason Comments Vestibular Encounter Details Date Type Department Care Team Description 09/06/2017 Office Visit [facility] Carlo Chawla, Nani stibular Therapy PT hypofunction, right [address] (Primary Dx) [address]. [place], [place] [phone] 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 Tobacco Use Types Packs/Day Years Used Date Smoking Tobacco: Never Smokeless Tobacco: Never Alcohol Use Standard Drinks/Week Comments Yes 0 (1 standard drink = 0.6 oz pure alcoho l) occasionally Sex Assigned at Date Recorded Not on file documented as of this encounter Progress Notes Carlo Chawla, PT - 09/06/2017 10:30 AM CDT Date of Service: 09/06/2017 [facility] 1990 [facility] Progress Note Visit Number: 2 Initial Certification Period: 08/30/2017 to 10/29/17 Referring Provider: Shakira Bright Visit Diagnosis: 1. Vestibular hypofunction, right Precautions: anxiety, depression Onset/Referral Date: 07/13 SUBJECTIVE Patient reports significantly improved dizziness. Only occasionally nauseous waking in the morning (2x) and she is able to walk longer prior to onset of dizziness. No dizziness sit to stand. OBJECTIVE Other: Positive flexion/extension 2x eyes closed, trunk flexion eyes closed, U balance right, 3/4 tandem closed PT Outcomes: PT - Vestibular Dizziness Handicap Inventroy (DHI) (0-100, 0 being best): 4 Today's Intervention: Neuromuscular re-education x 25 minutes: I told her symptoms and tolerance look improved today. She performed trunk flexion, cervical rotation, U balance, 3/4 tandem balance, feet together balance. I tried her on a variety of repetitions, variations (eyes open, closed). I think she can work out the remaining symptoms with home exercises. She plans to start yoga tonight for which I recommended being mindful of symptoms. I gave her 3/4 tandem balance eyes closed 5x15 seconds, U balance eyes open 5x15 seconds B, trunk flexion/extension eyes closed 2x 2x daily, all for 2 weeks. She may incorporate these into regular routines for prevention. I gave her tips, cues, feedback on form, speed, proper exercise sensation, desired workload for each exercise. Access Code: [email or web address] URL: [email or web address] Date: 09/06/2017 Prepared by: Dr. Sherman Chawla Exercises Alternating Single Leg Balance - Foot Behind - 5 reps - 15 hold - 1x daily - 7x weekly Standing Romberg to 3/4 Tandem Stance - 5 reps - 15 hold - 1x daily - 7x weekly Standing Forward Trunk Flexion - 2 reps - 2x daily - 7x weekly Timed Code Treatment Minutes: 20 Total Treatment Minutes: 35 ASSESSMENT Patient has improved tolerance and symptoms. Goals/Functional Outcomes: DHI score will be 0 in 3 week(s). Patient will no longer have dizziness with getting in and out of bed in 3 week(s)- nearly met. Patient will ambulate with no assistive device and independent for 300 feet in no dizziness in 3 week(s)- largely met. Patient will be independent with home exercise program in 1 week(s)- met. PLAN Encounter Date: 09/06/2017 Pt : 1990 [facility] Physical Therapy Discharge Summary Patient was seen for therapy from 08/30 through 09/06. Patient was compliant with attendance and therapy recommendations. PT - Discharge Total Visits: 2 Reason for discharge: Therapy goals met, or therapist expects patient to meet goals through home program. Primary Therapist: Discharging therapist Outcome measures at discharge: PT - Vestibular Dizziness Handicap Inventroy (DHI) (0-100, 0 being best): 4 Discharge recommendations: Patient will continue to work independently with home program/self management strategies. documented in this encounter Plan of Treatment Not on filedocumented as of this encounter Visit Diagnoses Diagnosis Vestibular hypofunction, right - Primary documented in this encounter Care Teams Production Mechanic Relationship Specialty Start Date End Date Shakira Bright DO PCP - General Family Practice 02/02/16 [address] [place] [address] documented as of this encounter
--- OUTSIDE RECORDS SUMMARY | 2022-01-26 14:07 | XMS_ITS | Encounter Summary ---
:[address] [facility] Address [address] [place] [address] Care Team Providers Name Role Phone Shakira Bright DO Primary Care Provider Reason for Visit Reason Comments Injection Encounter Details Date Type Department Care Team Description 05/05/2016 Nursing Visit [place] [address] Family Nurse, P3850 F Medicine [address] [place], [place] [address] 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 Tobacco Use Types Packs/Day Years [...] (Right Anterior Thigh) Given 05/05/2016 9:06 AM INTERNIST MEDICAL DOCTOR MD 150 mg Left Deltoid documented in this encounter Care Teams Patrol Mother Relationship Specialty Start Date End Date Shakira Bright DO PCP - General Family Practice 02/02/16 [address] [place], [place] [address] documented as of this encounter
--- OUTSIDE RECORDS SUMMARY | 2022-01-26 14:07 | XMS_ITS | Encounter Summary ---
:[address] [facility] Address [address], [place] [address] Care Team Providers Name Role Phone Shakira Bright DO Primary Care Provider Reason for Visit Reason Comments DIZZINESS Encounter Details Date Type Department Care Team Description 07/12/2017 Nurse Triage [facility] [address] Family Shakira Mcgill DO DIZZINESS Medicine [address] [facility] [place] [address] [place], [place] [id number] [phone] 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 Tobacco Use Types Packs/Day Years Used Date Smoking Tobacco: Never Smokeless Tobacco: Never Alcohol Use Standard Drinks/Week Comments Yes 0 (1 standard drink = 0.6 oz pure alcoho l) occasionally Sex Assigned at Date Recorded Not on file documented as of this encounter Nursing Notes Bre Millan RN - 07/12/2017 3:19 PM CDT Patient contacted and appointment scheduled. Future Appointments Date Time Provider Department Center 07/14/2017 11:00 AM Shakira Bright DO P3850 PN P3850 Shakira Bright DO - 07/12/2017 12:24 PM CDT She should be seen. Mary Rodríguez RN - 07/12/2017 11:45 AM CDT Reason for Call: Clinician input needed on symptom based concern. Severe dizziness, (and vomiting) with tapering Celexa from 20mg to 10mg. Next Steps: Document further recommendations and route to appropriate person or pool. Caller IS expecting a call back from Care Team. Route to [facility] for patient follow up. Additional Information: See assessment/triage below. PCP please advise Mary Rodríguez RN - 07/12/2017 11:28 AM CDT Symptoms: severe dizziness, vomiting Characteristics:bumps into barber, unable to walk, TAPERING SSRI dosage by 50% started 4-14. Last vomiting was 30 min ago Pain: denies History:pt requested tapering of SSRI, as she and spouse want to conceive Onset date/time: 4-13 Location:na Aggravating: na Relieving: na Reason for Disposition ??? SEVERE dizziness (e.g., unable to stand, requires support to walk, feels like passing out now) Protocols used: [id number] Call from pt via ER line. Tapering of SSRI at pt request. Now very dizzy. Vomiting started 4-16. Shesaid her eyes look all over. Problem list reviewed as related to this call. documented in this encounter Plan of Treatment Not on filedocumented as of this encounter Visit Diagnoses Not on filedocumented in this encounter Care Teams Water Taxi Operator Relationship Specialty Start Date End Date Shakira Bright DO PCP - General Family Practice 02/02/[address] [place] [address] documented as of this encounter
--- OUTSIDE RECORDS SUMMARY | 2022-01-26 14:07 | XMS_ITS | Clinical Summary ---
:1990 Author Organization [facility] Address [address] [place] [address] Care Team Providers Name Role Phone Shakira Bright DO Primary Care Provider Source Comments You are receiving this document as you are listed as the primary care provider,follow-up provider, or the patient has been referred to you for consultation.This is in compliance with the Medicare and Medicaid EHR Incentive Program,which states Providers who transition their patient to another setting of careor provider of care or refers their patient to another provider of care shouldprovide summarycare record for each transition of care or referral. MESIPartiStoryTime Allergies No known active allergies Medications Medication Sig Dispensed Refills Start Date End Date Status NIFEdipine (PROCARDIA) 10 Take 10 mg by 0 Active MG capsule mouth daily as needed for Other. ranitidine (ZANTAC) 150 Take 1 Tab by 180 Tab 3 02/12/2016 Active MG tablet mouth two times a day. MedroxyPROGESTERone 0 Active Acetate (DEPO-PROVERA IM) citalopram (CELEXA) 20 MG Take 0.5 Tabs by 0 018 Active tabletIndications: mouth daily. Depression, major, single episode, moderate (HRC), SARAVANAN (generalized anxiety disorder) (HRC) methylPREDNISolone Follow package 21 Tab 0 08/15/2017 Active (MEDROL 21 TABLET directions DOSEPACK) 4 MG tablet ondansetron (ZOFRAN-ODT) Take 1 Tab by 20 Tab 0 08/15/2017 Active 4 MG disintegrating mouth every 8 tablet hours as needed. Active Problems Problem Noted Date Raynaud's disease without gangrene 02/12/2016 Depression, major, single episode, moderate 02/12/2016 Immunizations Name Administration Dates Next Due Influenza IIV4 (Quadrivalent) 0.5mL (10993) 02/11/2016 Influenza, Unspecified Formulation 02/01/2017 Td (7+ yrs) 07/23/2016 Tdap 07/23/2016 Family History Medical History Relation Name Comments Cancer, Lung Maternal Grandfather Cancer, Breast Maternal Grandmother Cancer, Ovary Paternal Grandmother Relation Name Status Comments Maternal Grandfather Maternal Grandmother Paternal Grandmother 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 Tobacco Use Types Packs/Day Years Used Date Smoking Tobacco: Never Smokeless Tobacco: Never Alcohol Use Standard Drinks/Week Comments Yes 0 (1 standard drink = 0.6 oz pure alcoho l) occasionally Sex Assigned at Date Recorded Not on file Last Filed Vital Signs Vital Sign Reading Time Taken Comments Blood Pressure 112/80 08/15/2017 4:07 PM CDT Pulse 84 08/15/2017 4:07 PM CDT Temperature 36.4 ??C (97.5 ??F) 04/21/2017 9:48 AM PROFESSOR OF GEOGRAPHY Respiratory Rate - - Oxygen Saturation - - Inhaled Oxygen Concentration - - Weight 122 kg (269 lb) 08/15/2017 4:07 PM CDT Height 170.2 cm (5' 7) 08/15/2017 4:07 PM CDT Body Mass Index 42.13 08/15/2017 4:07 PM CDT Plan of Treatment Health Maintenance Due Date Last Done Comments Cervical Cancer Screening 1990 Due Hep C Screening (Preventive 1990 Services) HepB (1) 1990 COVID-19 Vaccine (#1) 1990 HIV Screening (Preventive 2007 Services) Adult Preventive Visit 02/11/2018 02/12/2016 Influenza (#1) 2021 01/31/2020, 01/02/2019, 01/17/2018, Additional history exists DTaP/Tdap/Td (2 - Tdap) 11/30/2028 11/30/2018, 07/23/2016, 07/23/2016, Additional history exists Zoster/Shingles (1 of 2) 2041 HPV Vaccine Aged Out No longer sanjiv brown based on patient 's age to complete this topic HepA Aged Out No longer eligib le based on patient 's age to complete this topic Hib Aged Out No longer eligib le based on patient 's age to complete this topic IPV (Polio) Aged Out No longer eligib le based on patient 's age to complete this topic MCV4 Aged Out No longer eligib le based on patient 's age to complete this topic Pneumococcal Aged Out No longer eligib le based on patient 's age to complete this topic Insurance Payer Benefit Plan / Subscriber ID Effective Phone Address T ype Group Dates PREFERREDONE PREFERREDONE [id number] 2019-Pre [phone] OPEN ACCESS sent [phone] [place] [id number] [phone] (Home) [place] [id number] Care Teams Animal Maintenance Supervisor Relationship Specialty Start Date End Date Shakira Bright DO PCP - General Family Practice 02/02/16 [address] [facility] [place] [id number]
--- OUTSIDE RECORDS SUMMARY | 2022-01-26 14:07 | XMS_ITS | Encounter Summary ---
:1990 Author Organization [facility] Address [address] [place] [address] Care Team Providers Name Role Phone Shakira Bright DO Primary Care Provider Reason for Visit Reason Comments Vestibular Therapies (Routine) - Closed Specialty Diagnoses / Procedures Referred By Contact Refer red To Contact Diagnoses Vestibular neuronitis, unspecified laterality Shakira Bright DO [address] [place], [place] [address] Referral ID Status Reason Start Date Expiration Date Visits Requ ested Visits Authorized [id number] Closed 08/15/2017 10/14/2017 1 1 Encounter Details Date Type Department Care Team Description 08/30/2017 Initial Consult [facility] Carlo Chawla, Vestibular Therapy PT hypofunction, right [address] (Primary Dx) [place] [address] [phone] 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 Tobacco Use Types Packs/Day Years Used Date Smoking Tobacco: Never Smokeless Tobacco: Never Alcohol Use Standard Drinks/Week Comments Yes 0 (1 standard drink = 0.6 oz pure alcoho l) occasionally Sex Assigned at Date Recorded Not on file documented as of this encounter Progress Notes Carlo Chawla, PT - 08/30/2017 9:00 AM CDT Date of Service: 08/30/2017 Pt. : 1990 [facility] Physical Therapy - Vestibular Evaluation/Plan of Care Initial Certification Period: 08/30/2017 to 10/29/17 Referring Provider: Shakira Bright Visit Diagnosis: 1. Vestibular hypofunction, right Precautions: anxiety, depression Onset/Referral Date: 07/13 SUBJECTIVE Reason for Visit: dizziness History of Falls: None Patient Therapy Goals: eliminate dizziness Past Medical History: Patient has a past medical history of Raynaud's disease (HRC). Patient reports1-2 months of dizziness from an unknown cause. No prior history of dizziness, ear infections, hearing loss, allergies/sinus trouble, stress, car sickness, neck trouble. Positive for anxiety and depression. She was given 2 rounds of steroids which helped symptoms. 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 Patient History: Moderate Complexity: 1-2 personal factors and/or comorbidities that impact plan of care: Anxiety, depresson OBJECTIVE General: patient is a calm, clear, younger female in no acute distress. Oculomotor examination: Spontaneous Nystagmus: Normal Eye Movement Range: Not Tested Vergence: Not tested Smooth Pursuit Eye Movement: normal Saccadic Eye Movement: Not tested HINTS: (3/3 positive; + LR 6.19) Negative Head Impulse/Thrust Test: saccadic correction: right Gaze Holding Nystagmus: Normal Test of Skew: negative CROM: CROM: Within normal limits throughout Balance: Rhomberg (arms folded across chest/heels together): Eyes closed: imbalance Sharpened Rhomberg (tandem stance): Eyes open: imbalance U balance imbalance Test Performed with Fixation Blocked: Spontaneous Nystagmus: Normal Gaze holding Nystagmus: Normal Head shaking Nystagmus (3-4 hz x 10 seconds, head tilt >30 degrees, >3 beats = positive): Normal Henebert's Sign (tragus pressure): Normal Hyperventilation Test (deep breaths x 1 minute): Normal Positional Tests: Test performed with fixation blocked (frenzel goggles on): Right hallpike: negative for dizziness and negative nystagmus Left hallpike: negative for dizziness and negative nystagmus Other: Positive flexion/extension 1x, cervical rotation 2x eyes closed Negative trunk flexion, trunk rotation, PT Outcomes: PT - Vestibular Dizziness Handicap Inventroy (DHI) (0-100, 0 being best): 12 Clinical Examination: Low complexity: Addressed 1-2 elements from body structures and functions (see above), and/or functional limitations as noted below. Today's Intervention: Physical Therapy Evaluation was completed and the patient was educated on the condition, planned therapy intervention and expectations from treatment. Neuromuscular re-education x 20 minutes: I educated her about hypofunction, treatment with stimulation, anatomy, expectations for treatment time, long-term care with yoga/exercises/pilates (more head, body stimulation). I gave her feet together balance eyes closed 5x15 seconds, tandem balance eyes open 5x15 seconds B, cervical flexion/extension 1x 2x daily, all daily. I gave her tips, cues, feedback on form, speed, proper exercise sensation, desired workload for each exercise. I told her 2-3x over 3weeks. Timed Code Treatment Minutes: 20 Total Treatment Minutes: 35 ASSESSMENT Therapist Impression/Summary: hypofunction right PT Clinical Presentation: Low Complexity: Stable and Uncomplicated Clinical Decision Making: Low Complexity Significant Impairments: Vertigo Functional Limitations: difficulty with balance, difficulty with cervical extension and difficulty with gait. Goals/Functional Outcomes: DHI score will be 0 in 3 week(s). Patient will no longer have dizziness with getting in and out of bed in 3 week(s). Patient will ambulate with no assistive device and independent for 300 feet in no dizziness in 3 week(s). Patient will be independent with home exercise program in 1 week(s). Barriers to Goal Achievement or Learning: none Prognosis: Excellent PLAN Planned Intervention/Education: Education, Neuromuscular Re-education Frequency: 1 x week Duration: 2-3x Discharge Plan: Patient will be discharged from therapy when goals are achieved or patient plateaus in progress. Informed Consent: Patient and/or family in agreement with the care plan. Plan for Next Treatment: progress balance, habituation, ocular; educate The stretching press operator is completed by the therapist and the referring clinician's electronic signature certifies medical necessity for the plan above. documented in this encounter Plan of Treatment Scheduled Referrals Name Type Priority Associated Diagnoses Order S chedule Physical Therapy Referral Routine Vestibular neuronitis, O rdered: 08/15/2017 unspecified laterality documented as of this encounter Visit Diagnoses Diagnosis Vestibular hypofunction, right - Primary documented in this encounter Care Teams Egg Smeller Relationship Specialty Start Date End Date Shakira Bright DO PCP - General Family Practice 02/02/16 [address] [place] [address] documented as of this encounter
--- OUTSIDE RECORDS SUMMARY | 2022-01-26 14:07 | XMS_ITS | Encounter Summary ---
:1990 Author Organization [facility] Address [address] [place] [address] Care Team Providers Name Role Phone Shakira Bright DO Primary Care Provider Encounter Details Date Type Department Care Team Description 09/17/[address] [place] [address] [facility] Drive-Up Encounter for screening [address] [facility] [place] [address] diseases [phone] 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 Tobacco Use Types Packs/Day Years Used Date Smoking Tobacco: Never Smokeless Tobacco: Never Alcohol Use Standard Drinks/Week Comments Yes 0 (1 standard drink = 0.6 oz pure alcoho l) occasionally Sex Assigned at Date Recorded Not on file documented as of this encounter Plan of Treatment Not on filedocumented as of this encounter Procedures Procedure Name Priority Date/Time Associated Comments Diagnosis 2019 NOVEL Routine 09/17/2019 2:03 PM Encounter for Results for this CORONAVIRUS CDT screening for other procedur e are in viral diseases the results section. documented in this encounter Results Symptomatic - 2019 Novel Coronavirus (COVID-19) (09/17/2019 2:03 PM CDT) [facility] Method Time Signature COVID-19 Not Not 09/18/2019 [facility] Interpretation Detected Detected 1:24 PM CENTRAL LAB CDT Specimen Anatomical Collection Method Collection Time Receive d Time (Source) Location / / Volume Laterality Swab (Source Non-blood 09/17/2019 2:03 PM 0 4:04 Required) Collection / CDT PM CDT Unknown Narrative [facility] CENTRAL LAB - 09/18/2019 1:24 PM CDT Testing has been performed by Job Printer Apprentice Mediated Amplification. This test has been authorized by the FDA under an Emergency Use Authorization (EUA) for use by authorized laboratories. Shakira Bright DO LAB_1 Performing Organization Address City/State/ZIP Code Phon e Number [facility] [address] [address] documented in this encounter Visit Diagnoses Diagnosis Encounter for screening for other viral diseases documented in this encounter Care Teams Ladies Underwear Operator Relationship Specialty Start Date End Date Shakira Bright DO PCP - General Family Practice 02/02/16 [address] [place] [address] documented as of this encounter
--- OUTSIDE RECORDS SUMMARY | 2022-01-26 14:07 | XMS_ITS | Encounter Summary ---
:1990 [facility] Address [address], [place] [address] Care Team Providers Name Role Phone Shakira Bright DO Primary Care Provider Reason for Visit Procedure/Equipment (Routine) - Incomplete Specialty Diagnoses / Procedures Referred By Contact Refer red To Contact Diagnoses Pain of left heel Samantha Paez MD Procedures XR Calcaneus Lt 2+ Views [address] [facility] [address] [place], [place] [address] Referral ID Status Reason Start Date Expiration Date Visits V isits Requested Authorized [id number] Incomplete 03/14/2017 06/13/2018 1 1 Encounter Details Date Type Department Care Team Description 03/14/2017 [facility] Samantha Paez MD Pain of left heel Center - Radiology [address] [facility] [address] [facility] [address] [place], [place] [address] [phone] 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 Tobacco Use Types Packs/Day Years Used Date Smoking Tobacco: Never Smokeless Tobacco: Never Alcohol Use Standard Drinks/Week Comments Yes 0 (1 standard drink = 0.6 oz pure alcoho l) Sex Assigned at Date Recorded Not on file documented as of this encounter Plan of Treatment Not on filedocumented as of this encounter Procedures Procedure Name Priority Date/Time Associated Diagnosis Comme nts XR CALCANEUS LT 2+ Routine 03/14/2017 1:20 PM Pain of left alton l Results for this VIEWS OPERATIONS SUPPORT REPRESENTATIVE procedure are i n the results section. documented in this encounter Results XR Calcaneus Lt 2+ Views (03/14/2017 1:20 PM OPERATIONS SUPPORT REPRESENTATIVE) Anatomical Region Laterality Modality Lower Extremity, Foot, Foot & Ankle Comp uted Radiography Specimen (Source) Anatomical Collection Method Collection Time Re ceived Time Location / / Volume Laterality 03/14/2017 1:00 PM OPERATIONS SUPPORT REPRESENTATIVE Narrative 03/14/2017 1:22 PM OPERATIONS SUPPORT REPRESENTATIVE COMPARISON: ??None. FINDINGS: ??No significant bone or joint abnormality is noted. Procedure Note Marko Travis MD - 03/14/2017Formatti ng of this note might be different from the original. COMPARISON: None. FINDINGS: No significant bone or joint a bnormality is noted. Samantha Saravia MD RAD GD documented in this encounter Visit Diagnoses Diagnosis Pain of left heel Pain in limb documented in this encounter Care Teams Apparel Trimmings Sales Representative Relationship Specialty Start Date End Date Shakira Bright DO PCP - General Family Practice 02/02/16 [address] [place] [address] documented as of this encounter
--- OUTSIDE RECORDS SUMMARY | 2022-01-26 14:07 | XMS_ITS | Encounter Summary ---
:1990 [facility] Address [address] [place] [address] Care Team Providers Name Role Phone Shakira Bright DO Primary Care Provider Reason for Visit Reason Onset Date Comments ABDOMINAL, NOS 02/02/2016 Pt has been having a katelyn reflux, declined to speak to nurse, has appointment 01/26 10/10. Encounter Details Date Type Department Care Team Description 02/02/2016 Telephone [facility] [address] Shakira Bright, AB DOMINAL, NOS (Pt has Family Medicine DO been having acid [address] ref lux, declined to [address] speak to nurse, has [place], [place] ap pointment 02/12/16. [phone] ) [phone] (Wo rk) 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 Tobacco Use Types Packs/Day Years Used Date Smoking Tobacco: Never Assessed Sex Assigned at Date Recorded Not on file documented as of this encounter Nursing Notes Maryan Healy, TRISTAN - 02/03/2016 10:24 AM CST Left msg to call [phone] E GLUER Geeta Ellington RN - 02/02/2016 11:17 AM CST Left message #1 for Jolly to callback to [phone] if she wants to talk with a nurse to go oversome home management until her appointment on 02/11 E GLUER Verona Burdick - 02/02/2016 9:05 AM CST Pt has been having acid reflux, declined to speak to nurse, has appointment 02/12/16. E GLUER documented in this encounter Plan of Treatment Not on filedocumented as of this encounter Visit Diagnoses Not on filedocumented in this encounter Care Teams Promotions Representative Relationship Specialty Start Date End Date Shakira Bright DO PCP - General Family Practice 02/02/16 [address] [place] [address] documented as of this encounter
--- OUTSIDE RECORDS SUMMARY | 2022-01-26 14:07 | XMS_ITS | Encounter Summary ---
:1990 [facility] Address [address] [address] Care Team Providers Name Role Phone Shakira Bright DO Primary Care Provider Reason for Visit Reason Comments Medication Questions Encounter Details Date Type Department Care Team Description 07/12/2017 Nurse Triage [facility] [address] Shakira Bright, [place] dication Questions Family Medicine DO [address] [facility] [address] [facility] [place] [address] [phone] (Wo rk) 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 Tobacco Use Types Packs/Day Years Used Date Smoking Tobacco: Never Smokeless Tobacco: Never Alcohol Use Standard Drinks/Week Comments Yes 0 (1 standard drink = 0.6 oz pure alcoho l) occasionally Sex Assigned at Date Recorded Not on file documented as of this encounter Nursing Notes Neela Leggett RN - 07/12/2017 7:20 AM CDT Reason for Disposition ??? MILD or MODERATE vomiting (e.g., 1 - 5 times / day) Protocols used: [id number] Pt has been weaning herself off of her Celexa . She is currently taking 10mg QD. Since she has triedto cut back,, she has become nauseated and has vomited today several times. Went over home mgmt at this time and sx to watch for. If worsening , should call back.Denies urgent sx Problem list reviewed as related to this call. documented in this encounter Plan of Treatment Not on filedocumented as of this encounter Visit Diagnoses Not on filedocumented in this encounter Care Teams Supervisor Fabrication And Assembly Relationship Specialty Start Date End Date Shakira Bright DO PCP - General Family Practice 02/02/16 [address] [place] [address] documented as of this encounter
--- OUTSIDE RECORDS SUMMARY | 2022-01-26 14:07 | XMS_ITS | Encounter Summary ---
:1990 [facility] Address [address], [place] [address] Care Team Providers Name Role Phone Shakira Bright DO Primary Care Provider Reason for Visit Reason Comments MEDICATION CHECK Injection Depo Encounter Details Date Type Department Care Team Description 07/08/2017 Office Visit [facility] [address] Fei Hankins, major, single episode, moderate (HRC); Family Medicine MD Jamie SARAVANAN (generalized anxiety disorder) [address] [facility] [address] [place] [address] [phone] (Wo rk) 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 Tobacco Use Types Packs/Day Years Used Date Smoking Tobacco: Never Smokeless Tobacco: Never Alcohol Use Standard Drinks/Week Comments Yes 0 (1 standard drink = 0.6 oz pure alcoho l) occasionally Sex Assigned at Date Recorded Not on file documented as of this encounter Last Filed Vital Signs Vital Sign Reading Time Taken Comments Blood Pressure 118/68 07/08/2017 11:44 AM CDT Pulse 78 07/08/2017 11:44 AM CDT Temperature - - Respiratory Rate - - Oxygen Saturation - - Inhaled Oxygen Concentration - - Weight 121.9 kg (268 lb 12.8 oz) 07/08/2017 11:44 AM CDT Height 170.2 cm (5' 7) 07/08/2017 11:44 AM CDT Body Mass Index 42.1 07/08/2017 11:44 AM CDT documented in this encounter Patient Instructions Patient InstructionsBetitoAnnettaMary P, HOME HEALTH CARE SOCIAL WORKER - 07/08/2017 11:48 AM CDT Mindful Eating: Listening to what your body is ???telling?? you You may have tried diets and eating plans in an effort to change your weight or control your eating.Diets usually focus on a plan full of numbers, lists or allowed and not allowed foods. Mindful eating is a different approach that focuses on paying attention to the signals your body naturally gives for hunger and satiety (satisfaction). Eating mindfully can help you to truly enjoy meals, change your weight, develop healthy eating habits and improve your sense of well-being. How do I recognize when I???m hungry or satisfied? Signs of hunger and satiety People experience different hunger and satiety cues. Common signs include the following. Hunger ?? rumbling stomach ?? unpleasant stomach contractions (hunger pangs) ?? mild lightheadedness ?? difficulty concentrating ?? irritability ?? faintness ?? headaches Satiety ?? increasing tightness across your abdomen ?? physical satisfaction ?? decreasing pleasure in food ?? disappearance of hunger cues When you???re very hungry, you may find yourself eating more rapidly and then gradually slowing downas you become satisfied. When you???ve overeaten, or eaten until you feel full or stuffed, your clothing may feel tighter. You also may feel sluggish, sleepy or tired. Measurement of hunger and satiety Another way to help recognize the sensations of hunger and satiety is to measure them. Rate your hunger and satiety on the scale below from 0 to 10, with 0 being starved and 10 being stuffed. It is helpful to evaluate your satiety a few times throughout the meal or snack. Eat when you???re hungry (about 1 to 2 on the scale). Stop eating when you???re satisfied (about 5 to 6). F requently waiting to eat until you're starved (0 on the scale) or eating until you're full orstuffed (7 through 10) may start a pattern of swinging wildly between these two extremes. Learning to eat when you???re hungry and stopping when you???re satisfied helps decrease your chanceof swinging between feeling starved and feeling stuffed. This also can prevent emotional eating (forexample, when you are stressed or bored). ?0?1?2?3?4?5?6?7?8?9?10? Starved Hungry Neutral Satisfied Full Stuffed Does eating regular meals and snacks help hunger signals become clearer? Yes. Eating regularly reminds your body what natural eating feels like. Your body sends out hunger cues at times when you're used to eating or feeling hungry. Once you???re hungry, it???s important to take time to eat and enjoy the experience. Mindful eating helps your body send satisfied cues that you've had a meal and eaten enough. Consistently eating every four to five hours provides fuel for your body throughout the day. Is it OK to eat at my desk, in the car or while watching TV? Eating while doing some other activity takes the focus away from eating and puts you out of touch with your body's signals of hunger and satiety. The activity distracts from mindful eating. People often take a few bites of food and then continue eating while watching the TV, making a telephone call, searching the Internet, reading the newspaper or doing other activities. Activity prevents you from thoroughly smelling, seeing, tasting and experiencing what you're eating. What steps should I take to start eating mindfully? Mindful eating takes attention, time and practice. To develop stronger mindful eating skills, you may need to try different strategies to find what works best for you. Follow these tips to help make mindful eating a regular daily habit. Enjoy food and good health. ??? Set a consistent schedule for eating. Some people struggle with irregular eating habits, which may cause weight gain. ??? Eat a meal every four to five hours. This amount of time between meals allows your body to become hungry and send out hunger signals. If you find that you get too hungry between meals, schedule a snack. ??? Take time to eat. Make meals last 15 to 30 minutes. Experience meals instead of eating on the go. Savor and enjoy your food. Give your body a chance to become satisfied and let your brain know. ??? Eat at a table with a place setting. This helps send your body the message that you're having a meal. Eating while driving isn't a relaxing eating experience and often unsafe. ??? Eat with other people. Eating (and making) a meal with others can be an enjoyable shared experience and help in planning and scheduling regular healthy meals. Mindful eating involves choosing foodsthat are nourishing and pleasing. Knowing what food you'll be eating can result in a fulfilling meal. Randomly opening cupboards or the refrigerator, and eating while standing in the kitchen, on the other hand, often leads to feeling unsatisfied and to overeating. ??? Use the hunger scale. Listen for hunger and satiety cues. Pay attention to what your body is telling you. What does your body do when it is hungry? What does it feel like when you've eaten enough? Be aware of how your emotions affect your eating. Are there times and situations when you eat when you're not hungry? Be in the moment. People often are doing other things when they're eating. Thinking about the amount of calories in food, watching TV or working on the computer can distract you from your eating experience. Be mindful and enjoy the pleasure of eating and eating healthfully. Resources ??? The Center for Mindful Eating www.tcme.org ??? Intuitive Eating: A Revolutionary Program That Works by Wanda Barba, , RD and Ashley Robert, MS, RD, FADA. [place], [place]: [employer], 2003. ??? Mindless Eating: Why We Eat More Than We Think by Geovany Reyes, PhD. [place], [place]: [employer],2006. ??? Eating Mindfully: How to End Mindless Eating and Enjoy a Balanced Relationship with Food by Michelle Carpenter PsyD. [place], [place]: [employer], 2003. This isn???t just about health care. This is about you. 12869 (11/04) Walking for Exercise: Care Instructions Your Care Instructions Walking is one of the easiest ways to get the exercise you need for good health. A brisk, 30-minute walk each day can help you feel better and have more energy. It can help you lower your risk of disease. Walking can help you keep your bones strong and your heart healthy. Check with your doctor before you start a walking plan if you have heart problems, other health issues, or you have not been active in a long time. Follow your doctor's instructions for safe levels of exercise. Follow-up care is a gentile part of your treatment and safety. Be sure to make and go to all appointments, and call your doctor if you are having problems. It's also a good idea to know your test results and keep a list of the medicines you take. How can you care for yourself at home? Getting started ?? Start slowly and set a short-term goal. For example, walk for 5 or 10 minutes every day. ?? Bit by bit, increase the amount you walk every day. Try for at least 30 minutes on most days of the week. You also may want to swim, bike, or do other activities. ?? If finding enough time is a problem, it is fine to be active in blocks of 10 minutes or more throughout your day and week. ?? To get the heart-healthy benefits of walking, you need to walk briskly enough to increase your heart rate and breathing, but not so fast that you cannot talk comfortably. ?? Wear comfortable shoes that fit well and provide good support for your feet and ankles. Staying with your plan ?? After you've made walking a habit, set a longer-term goal. You may want to set a goal of walking briskly for longer or walking farther. Experts say to do 2?? hours of moderate activity a week. A faster heartbeat is what defines moderate-level activity. ?? To stay motivated, walk with friends, coworkers, or pets. ?? Use a phone sabino or pedometer to track your steps each day. Set a goal to increase your steps. Once you get there, set a higher goal. Aim for 10,000 steps a day. ?? If the weather keeps you from walking outside, go for walks at the mall with a friend. Local schools and churches may have indoor gyms where you can walk. Fitting a walk into your workday ?? Park several blocks away from work, or get off the bus a few stops early. ?? Use the stairs instead of the elevator, at least for a few floors. ?? Suggest holding meetings with colleagues during a walk inside or outside the building. ?? Use the restroom that is the farthest from your desk or workstation. ?? Use your morning and afternoon breaks to take quick 15-minute walks. Staying safe ?? Know your surroundings. Walk in a well-lighted, safe place. If it is dark, walk with a partner. Wear light-colored clothing. If you can, buy a vest or jacket that reflects light. ?? Carry a cell phone for emergencies. ?? Drink plenty of water. Take a water bottle with you when you walk. This is very important if it is hot out. ?? Be careful not to slip on wet or icy ground. You can buy grippers for your shoes to help keep you from slipping. ?? Pay attention to your walking surface. Use sidewalks and paths. ?? If you have breathing problems like asthma or COPD, ask your doctor when it is safe for you to walk outdoors. Cold, dry air, smog, pollen, or other things in the air could cause breathing problems. Where can you learn more? 1. Go to Foursquare/TriPlayraSnappCloud or Panono/Little Birdrary. 2. Enter R159 in the search box. Current as of: June 07, 2016 Content Version: 11.5 ?? [id number] [place], [place]. documented in this encounter Progress Notes Fei Hankins MD - 07/08/2017 11:00 AM CDT SUBJECTIVE: This 27 y.o. female presents for evaluation of depression and anxiety. Here as she is interested in getting off of her citalopram. and her are considering getting in the next 6 months or so. Hasn't had any major issues. No side effects. No nausea, vomiting, diarrhea. No fevers or chills. No dizziness or lightheadedness. No issues with depression or anxiety in quite some time. Realizes that it would be safe to continue if needed, but interested in getting off if able. Review of systems: See above. Medications: Reviewed and updated as below Outpatient Medications Prior to Visit Medication Sig Dispense Refill ??? citalopram (CELEXA) 20 MG tablet TAKE 1 TAB BY MOUTH DAILY. 90 Tab 2 ??? MedroxyPROGESTERone Acetate (DEPO-PROVERA IM) ??? NIFEdipine (PROCARDIA) 10 MG capsule Take 10 mg by mouth daily as needed for Other. ??? ranitidine (ZANTAC) 150 MG tablet Take 1 Tab by mouth two times a day. 180 Tab 3 Facility-Administered Medications Prior to Visit Medication Dose Route Frequency Provider Last Rate Last Dose ??? medroxyPROGESTERone (DEPO-PROVERA) injection 150 mg 150 mg Intramuscular [id number] Shakira Bright, DO 150 mg at 07/08/17 1156 Adverse Drug Reactions: No Known Allergies Tobacco History: History Smoking Status ??? Never Smoker Smokeless Tobacco ??? Never Used OBJECTIVE: Vital Signs: BP 118/68 (BP Location: Right Arm, BP Cuff Size: Adult Large) Pulse 78 Ht 5' 7 (1.702 m) Wt 268 lb 12.8 oz (121.9 kg) BMI 42.1 kg/m2 General: Alert, Oriented, NAD Head: Normocephalic. Eyes: PERRLA, full EOM. External exams normal. Nose: Patent, without deformity.Throat: Moist mucous membranes without lesions, erythema, or exudate. Heart: RR without murmurs, rubs, or gallops. Respiratory: Normal respiratory effort. Lungs are clear with good breath sounds. Neurological: Normal coordination. No tremor. Psych: Affect is normal, patient is appropriate, grooming is appropriate. ASSESSMENT: ICD-10-CM 1. Depression, major, single episode, moderate (HRC) F32.1 citalopram (CELEXA) 20 MG tablet 2. SARAVANAN (generalized anxiety disorder) (HRC) F41.1 citalopram (CELEXA) 20 MG tablet PLAN: Discussed gradual taper off of medication, going down to 10 mg for a month, and then going off. If she has issues, can call in for refill if needed (and would want her to follow up). Believes she has enough of the 20 mg tabs to get through, if not, can call in for some of the 10 mg tabs. Spent some time reviewing evidence for SSRI's in , focusing on citalopram. The patient was discharged ambulatory and in stable condition. documented in this encounter Plan of Treatment Not on filedocumented as of this encounter Visit Diagnoses Diagnosis Depression, major, single episode, moder ate (HRC) Major depressive disorder, single episod e, moderate SARAVANAN (generalized anxiety disorder) (HRC) Generalized anxiety disorder documented in this encounter Administered Medications [...] Depo Provera Policy Given 04/14/2017 9:37 AM ASSEMBLER PRODUCT 150 mg Left Deltoid documented in this encounter Care Teams Plumbing Engineer Relationship Specialty Start Date End Date Shakira Bright DO PCP - General Family Practice 02/02/16 [address] [place] [address] documented as of this encounter
--- OUTSIDE RECORDS SUMMARY | 2022-01-26 14:07 | XMS_ITS | Encounter Summary ---
:1990 Author Organization [facility] Address [address], [place] [address] Care Team Providers Name Role Phone Shakira Bright DO Primary Care Provider Encounter Details Date Type Department Care Team Description 04/14/2017 Lab Visit [place] [address] Encounter for contraceptive Laboratory management, unspecified type [address] [place] [address] 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 Tobacco Use Types Packs/Day Years [...] Priority Date/Time Associated Diagnosis Comme nts TEST STAT 04/14/2017 9:21 AM Encounter for Result s for this (URINE) MANAGER PROGRAM contraceptive procedure are in management, the results unspecified type section. documented in this encounter Results Test Screen Urine (04/14/2017 9:21 AM MANAGER PROGRAM) P athologist Signature Urine Negative PN SOFT Test Specimen Anatomical Collection Method Collection Time Receive d Time (Source) Location / / Volume Laterality Urine specimen 04/14/2017 9:21 AM 018 9:21 (specimen) MANAGER PROGRAM AM MANAGER PROGRAM Narrative PN SOFT - 04/14/2017 9:21 AM MANAGER PROGRAM Performed at [place] [facility], [address] [place] [address] CLIA number [id number] Shakira Bright DO LAB_1 Performing Organization Address City/State/ZIP Code Phon e Number PN SOFT [address] [place] [address] documented in this encounter Visit Diagnoses Diagnosis Encounter for contraceptive management, unspecified type documented in this encounter Care Teams Pathology Laboratory Director Relationship Specialty Start Date End Date Shakira Bright DO PCP - General Family Practice 02/02/16 [address] [place], [place] [id number] documented as of this encounter
[2022-01-26 14:27] VITALS: BP 112/81; PULSE 93; RESP 16; O2SAT 98
[2022-01-26 15:00] VITALS: BP 115/78; PULSE 84; RESP 16; O2SAT 97
[2022-01-26 15:30] VITALS: BP 109/81; PULSE 84; RESP 16; O2SAT 97
[2022-01-26 16:04] VITALS: BP 112/76; PULSE 97; RESP 16; O2SAT 98
--- NOTE | 2022-01-26 16:35 | ED.NURSE ---
Patient was discharged. Prescriptions for epi pen and prednisone given to patient. Advised to wait 2 weeks to receive covid booster. All questions answered and left via ambulatory.
== END 2022-01-26 16:36 | disposition home or self-care (01) ==
PROVIDERS: Emergency Provider Family Medicine; PCP Family Medicine
DX: T78.3XXA Angioneurotic edema, initial encounter (principal); L50.9 Urticaria, unspecified
CPT/HCPCS: 96372; 99284; 99285; A9270; J0171; J7512

== ENCOUNTER 2022-03-12 07:53 | Outpatient (CLI) | payer OTHER, SELFPAY ==
--- NOTE | 2022-03-12 08:15 | CRLHL7_ITS ---
For Patients: As a result of the Cures Act, medical imaging exams and procedure reports are released immediately into your electronic medical record. You may view this report before your referring provider. If you have questions, please contact your health care provider. INDICATION: First trimester scan, establish dates. COMPARISON: None. TECHNIQUE: Real-time shine-scale imaging of the pelvis was performed. FINDINGS: Sonographic imaging demonstrates a single living intrauterine gestation. The embryo demonstrates a regular cardiac rate measuring 149 beats per minute. The embryo`s crown-rump length measurement of 1.2 cm corresponds to a gestational age of 7 weeks 3 days with a sonographic due date of 10/26/2022. There is a normal-appearing yolk sac. There are no gross abnormalities noted within the embryo at this early state of development. The gestational sac has a normal appearance. Subchorionic hemorrhage is present in the lower uterine segment measuring 6 x 6 x 6 millimeters. The amount of fluid within the sac appears appropriate for gestational age. The cervix is closed. The myometrium appears normal. The ovaries are of normal size. Left para ovarian cyst is present measuring 2.7 x 1.4 x 2.4 cm. Corpus luteal cyst left ovary. There are no suspicious fluid collections noted in the cul-de-sac. IMPRESSION: Single living intrauterine with sonographic gestational age 7 weeks 3 days and sonographic due date 10/26/2022. Small lower uterine segment subchorionic hemorrhage measuring 6 millimeters. Left para ovarian cyst measuring 2.7 cm. Dictated by Chucho Aviles MD @ 03/12/2022 9:46:55 AM (Electronically Signed)
== END 2022-03-12 07:54 | disposition home or self-care (01) ==
PROVIDERS: PCP Family Medicine; Visit Provider Registered Nurse
DX: Z34.81 Encounter for supervision of other normal pregnancy, first trimester (principal)
CPT/HCPCS: 76817

== ENCOUNTER 2022-03-12 09:08 | Outpatient (CLI) | payer OTHER, SELFPAY ==
[2022-03-12 11:45] LABS: Hepatitis B Surface Antigen* Negative (Negative)
[2022-03-12 11:56] LABS: HIV 1/2/P24 Combo Screen* Negative (Negative)
[2022-03-12 12:02] LABS: Hepatitis C Virus Antibody* Negative (Negative)
[2022-03-12 13:44] LABS: Chlamydia DNA Amplified* NOT DETECTED (No Detected); GC DNA Amplified* NOT DETECTED (No Detected)
[2022-03-14 02:45] LABS: Varicella-Zoster Virus Ab, IgG 843.4 IV
[2022-03-14 02:50] LABS: Rubella Antibody IgG 11.6 IU/mL
[2022-03-14 03:14] LABS: Rapid Plasma Reagin (RPR) Non Reactive (Non Reactive)
== END 2022-03-12 09:09 | disposition home or self-care (01) ==
PROVIDERS: PCP Family Medicine; Visit Provider Registered Nurse
DX: Z34.01 Encounter for supervision of normal first pregnancy, first trimester (principal)
CPT/HCPCS: 86592; 86703; 86762; 86787; 86803; 86850; 86900; 86901; 87086; 87340; 87491; 87591

== ENCOUNTER 2022-06-09 12:17 | Outpatient (CLI) | payer OTHER, SELFPAY | END 2022-06-09 12:18 | disposition home or self-care (01) | LOC: US 12:17 | PROVIDERS: PCP Family Medicine; Visit Provider Pediatrics Neonatal-Perinatal Medicine | DX: O98.512 Other viral diseases complicating pregnancy, second trimester (principal); U07.1 COVID-19; Z3A.20 20 weeks gestation of pregnancy | CPT/HCPCS: 76811 ==

== ENCOUNTER 2022-09-29 13:51 | Outpatient (CLI) | payer OTHER, SELFPAY ==
[2022-09-30 14:50] LABS: Strep B DNA Probe Negative (Negative); Strep B Pen/Amox Allergy No
== END 2022-09-29 13:52 | disposition home or self-care (01) ==
PROVIDERS: PCP Family Medicine; Visit Provider Advanced Practice Midwife
DX: Z34.93 Encounter for supervision of normal pregnancy, unspecified, third trimester (principal); Z3A.36 36 weeks gestation of pregnancy
CPT/HCPCS: 76816; 87081; 87653

== ENCOUNTER 2022-10-04 20:19 | Emergency (ER) | payer OTHER, SELFPAY ==
[2022-10-04 20:36] VITALS: BP 126/83; PULSE 125; RESP 18; TEMP 36.8; O2SAT 97; BMI 43.2
[2022-10-04] MEDS: 0.9 % SODIUM CHLORIDE 1000 ml 1,000 ML IV (21:00)
--- NOTE | 2022-10-04 21:00 | ED.GENADULT ---
HPI - General Adult General Chief complaint: Nausea/Vomiting Stated complaint: 37 weeks , dehydrated needs fluids Time Seen by Provider: 10/04/22 21:00 History of Present Illness HPI narrative: Patient here with vomiting and diarrhea starting around 3:30 am. Other children ill 9 days ago, uncertain if it is the same illness. Headache starting 1.5 hours ago. Back and lower extremity aching at 1/10. Healthy thus far with no complications. States baby is less active then usual. HR 125. 32-year-old woman presenting to the emergency department with complaint of frequent vomiting and diarrhea. No hematochezia or hematemesis described. Blood pressure noted to be WNL on arrival. Does have mild headache. Has back pain shooting up her spine with episodes of vomiting. This apparently is new. Generalized lower back ache as well. No abdominal cramping. No vaginal bleeding. No fever. She has not been urinating therefore can not say whether not she is experiencing any dysuria. Indicates the lack of urination she would consider problem. Has not had frequent vomiting/hyperemesis during . She thinks this is a transmissible illness as noted above. Related Data Home Medications Medication Instructions Recorded Confirmed vits [id number] fum 1 tab PO DAILY 01/22/22 10/14/22 28 mg iron-folic acid 800 mcg tablet (Classic ) aspirin 81 mg capsule 81 mg PO QDAY 06/09/22 10/14/22 omega-3 fatty acids-fish oil 300 cap PO 06/09/22 10/14/22 mg-500 mg capsule (Fish Oil) sertraline 50 mg tablet 25 mg PO QDAY 07/07/22 10/14/22 Previous Rx's Medication Instructions Recorded epinephrine 0.3 mg/0.3 mL 0.3 ml IM Q5-15M PRN #2 ea 01/26/22 injection, auto-injector albuterol sulfate 90 mcg/actuation 2 puff inhalation Q6-8H PRN 08/21/22 aerosol inhaler bronchospasm #8.5 grams Allergies Allergy/AdvReac Type Severity Reaction Status Date / Time No Known Drug Allergies Allergy Verified 10/14/22 09:13 Review of Systems Status of ROS: Reports: 6 or more systems reviewed and unremarkable except as noted in History and below [facility] Medical History Normal spontaneous vaginal delivery (01/28/19) ?O80 - Encounter for full-term uncomplicated delivery (ICD-10) Urinary tract infection in mother during ?O23.40 - Unspecified infection of urinary tract in , unspecified trimester (ICD-10) Exercise-induced bronchospasm ?J45.990 - Exercise induced bronchospasm (ICD-10) Surgical History Status post laparoscopic cholecystectomy (06/2019) ?Z90.49 - Acquired absence of other specified parts of digestive tract (ICD-10) History of third molar tooth extraction (2006) ?K08.409 - Partial loss of teeth, unspecified cause, unspecified class (ICD-10) History of bladder surgery (1997) ?Z98.890 - Other specified postprocedural states (ICD-10) Family History Maternal Grandmother Breast cancer Mother Depression Sister Depression Maternal Grandfather Heart disease Family/Other Kidney disease Paternal Grandmother Ovarian cancer Uncle Prostate cancer Other Lung cancer 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 Narrative: 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 Seems a little tired. Skin is warm and dry. Heart is in a regular rhythm with elevated pulse. Cranial nerves 2-12 look to be intact. Moving all extremities without difficulty. Mild edema around her ankles. Easily conversant. Breathing easily. Lungs appear to be clear. Abdomen is soft and mildly uncomfortable generally palpation. Const: Vital Signs, click to edit/add: Vital Signs - 24 hr 10/04/22 20:36 Temperature 98.2 F Pulse Rate [Right Pulse Oximeter] 125 H Respiratory Rate 18 Blood Pressure [Ri ght Upper Arm] 126/83 Pulse Oximetry 97 Oxygen Delivery Me thod Room Air Documenting provider has reviewed patient's vital signs: yes Course Vital Signs Vital signs: Initial Vital Signs Temperature 98.2 F 10/04/22 20:36 Temperature Source Temporal Artery Scan 10/04/22 20:36 Pulse Rate 125 H 10/04/22 20:36 Pulse Rhythm Regular 10/04/22 20:36 Respiratory Rate 18 10/04/22 20:36 Blood Pressure 126/83 10/04/22 20:36 Blood Pressure Mean 97 10/04/22 20:36 Blood Pressure Position Sitting 10/04/22 20:36 Pulse Oximetry 97 10/04/22 20:36 Oxygen Delivery Method Room Air 10/04/22 20:36 Vital Signs Temperature 98.2 F 10/04/22 20:36 Pulse Rate 125 H 10/04/22 20:36 Respiratory Rate 18 10/04/22 20:36 Blood Pressure 126/83 10/04/22 20:36 Pulse Oximetry 97 10/04/22 20:36 Oxygen Delivery Method Room Air 10/04/22 20:36 Temperature 98.2 F 10/04/22 20:36 Pulse Rate 99 10/04/22 21:52 Respiratory Rate 20 10/04/22 21:52 Blood Pressure 132/85 10/04/22 21:52 Pulse Oximetry 97 10/04/22 21:52 Oxygen Delivery Method Room Air 10/04/22 21:52 Medical Decision Making MDM Narrative Medical decision making narrative: I do not appreciate a concern of preeclampsia at this point. Will treat for symptoms and obtain urinalysis. Initiating IV fluids and Zofran. Monitored with NST during time here. I did review the strips with OB nursing. Looks to be reactive appropriately and reassuring. No contractions noted. Overall improved with treatment as indicated above. See patient discharge plan Medical Records Medical records reviewed: Yes I reviewed the patient's medical records Discharge Plan Discharge Clinical Impression: Vomiting and diarrhea, Dehydration Patient Disposition: Home, Self-Care Condition: Improved Additional Instructions: Slow advance of diet over the next 24-36 hours. Diluted juices, soup broths. Crackers, rice, toast. Zofran from [facility]. Can try loperamide if the diarrhea continues to be a problem. This was apparently approved by your runner worker. Return for intractable vomiting, increasing and persistent abdominal pain, fever, intractable diarrhea. Prescriptions: No Action Classic 28 mg iron- 800 mcg tablet 1 tab PO DAILY sertraline 50 mg tablet 25 mg PO QDAY Patient Comments: TAKE 1/2 TABLET BY MOUTH EVERY DAY FOR 1 WEEK. INCREASE TO 1 TABLET aspirin 81 mg capsule 81 mg PO QDAY Fish Oil 300-500 mg capsule PO epinephrine 0.3 mg/0.3 mL auto-injector 0.3 ml IM Q5-15M PRNQty: 2 0RF Rx Instructions: do not exceed 2 doses per episode albuterol sulfate 90 mcg/actuation HFA aerosol inhaler 2 puff inhalation Q6-8H PRN (Reason: bronchospasm) Qty: 8.5 12RF Follow Up/Referrals: Rhoda Gusman MD [Primary Care Provider] - Stand Alone Forms: [facility] Info Instructions
[2022-10-04 21:06] VITALS: BP 127/81; PULSE 115; RESP 20
[2022-10-04] MEDS: ONDANSETRON 2 MG/ML inj 4 MG IVP (21:14)
--- NOTE | 2022-10-04 21:29 | ED.NURSE ---
ob nurse Cielo is doing the nst. getting 1000 ns.
[2022-10-04 21:52] VITALS: BP 132/85; PULSE 99; RESP 20; O2SAT 97
--- NOTE | 2022-10-04 22:15 | PC.OBNST ---
NST Note NST Note Start: 10/04/22 22:13 Freq: ONCE Status: Active Protocol: Document 10/04/22 22:13 MMB (Rec: 10/04/22 22:14 MMB [id number]) NST Note 3 Para (# of births) 2 EDC 10/26/22 Gestational Age In Weeks & Days 36 Weeks & 6 Days Patient Presented with Complaint(s) of Nausea and vomiting,Headache Other Complaints Diarrhea. Evaluated in ED Reactive Yes Appropriate for Gestational Age Yes RN Jamie Diaz RN Date 10/04/22 Reactive Yes Appropriate for Gestational Age Yes TRISTAN Malone RN Date 10/04/22 OB NST charge Yes Complete NST Note via Write Note Yes The provider's electronic signature indicates the NST is reactive/appropriate for gestational age. *Note to provider: If an addendum is required, open the patient's chart and click on the note under the Nurse/Allied Health tab.
== END 2022-10-04 22:05 | disposition home or self-care (01) ==
PROVIDERS: Emergency Provider Family Medicine; PCP Family Medicine
DX: R11.2 Nausea with vomiting, unspecified (principal)
CPT/HCPCS: 59025; 81001; 96374; 99283; 99284; J2405; J7030

== ENCOUNTER 2022-10-30 01:09 | Inpatient (IN) | payer OTHER, SELFPAY ==
[2022-10-30] VITALS (13 sets, daily range): BP systolic 106–133; BP diastolic 62–84; PULSE 58–82; RESP 16; TEMP 36.5–37.1; O2SAT 96–98; BMI 43.5
--- NOTE | 2022-10-30 01:27 | P.LDBA_ITS ---
Subjective History of Present Illness Time Seen by Provider: 01:15 Date Seen: 10/30/22 Narrative: Patient is being admitted to Labor and Delivery for active labor at term. She is a 32 year old at 40.4 weeks gestation. Her full history and physical was dictated by Usha Parker CNM on 10/06/22. Please see this for details. Jolly started radha around 0045. With her history of precipitous labors she immediately presented. She was radha painfully on admission. She was found to be 4-5cm/80-90%/-2. No indication that she is leaking fluid and she denies bleeding. She is appreciating good movement. 1. BMI 39.2. Consider weekly BPP and/or NST starting at 36-37 weeks - declines 2. COVID infection during . Took paxlovid around the time of conception. Level II: WNL Growth 32 wks: 89% (has hx of bigger babies 8 lb 15 oz) Growth 36: 78% 3. H/o PP depression. Currently taking Zoloft and doing well. Seeing a therapist regularly. Zoloft decreased at 24 weeks due to weight dysphoria, consider alternative medication 4. Painful spot on right nipple/areola. Pt reports: something like dried milk that comes out of it when she applies pressure to the spot. Noticed it before pregnancies, but it was just a bump. Enlarged with each , then size is reduced between pregnancies. Very painful, especially when . Develops cracks/scabs and bleeding with trauma from . Extensive family history of breast cancer, has not had genetic testing. 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 No further follow up needed at this time unless becomes infected or she desires it removed 5. Has precipitous births, has barely made it to L & D. Likely need to call [facility] and fill tub when she says she is coming in. 6. Exercise induced asthma. OB - Problem Based A/P Additional Plan (1) Active labor at term: Status: Acute (2) History of precipitous labor and delivery: Status: Acute (3) Obesity with body mass index (BMI) of 30.0 to 39.9: Status: Acute Plan ASSESSMENT:? at 40.4 weeks gestation? GBS negative? Uncomplicated ? Active labor at term with a history of precipitous labors.? ?? PLAN:? 1. Candidate for analgesia of choice. Planning unmedicated .? 2. Anticipate ? 3. Expectant management at this time.? 4. IV not needed at this time. Consider if condition changes. 5. Intermittent monitoring once reactive stip obtained.? ? Delivery/Labor/Induction Plan Plan: expectant management OB Result Labs Blood Type: A (+) positive GBS Status: negative OB Exam Physical Exam Vital signs: Pulse BP 74 133/84 10/30/22 01:21 10/30/22 01:21 Narrative: Vitals per EMR? Psychiatric:? Alert and oriented x3? HEENT:? Normocephalic, atraumatic? Neck:? Supple without adenopathy or thyromegaly? Lungs:? Clear to auscultation bilaterally? Heart:? Regular rate and rhythm, no murmur, rub or gallop? Abdomen:? Soft, nontender, and gravid? Extremities:? No edema or erythema? Detailed Labor and Delivery Exam Patient Gravid: Yes Dilation (cm): 4 (4-5cm) Effacement (%): 85 Cervix position: mid Consistency: soft Contraction Frequency: 3-4 min Contraction intensity: Strong/Firm Fetus (Single) Station: -2 Amniotic Membrane Status: intact Heart Rate Baseline: 130 Monitor Accelerations: Present Monitor Decelerations: None Half-Way Variability: Moderate (6-25)
[2022-10-30] MEDS: ONDANSETRON 2 MG/ML inj 4 MG IV (03:50)
[2022-10-30] MEDS: OXYTOCIN 30 unit/500 ML in NS 30 UNIT/500 ML BAG 300 UNIT IVPB (04:02)
--- NOTE | 2022-10-30 04:42 | W.PM.OBVAGDE ---
OB Procedure Vag Delivery Mother Details Mother Details: The patient is a 32 year-old, 3, Para 2, admitted on 10/30/22 at 40.4 Days gestation. Patient was admitted for active labor and progressed normally. SROM noted at 0350 with moderately stained amniotic fluid. Patient was complete at 0347 and pushing at 0350. of a viable male at 0352 in hands and knees. She labored in multiple positions and moved frequently during her labor. She requested to deliver in hands and knees position. Vertex delivered OA. No shoulder. Nuchal cord x2 loose and easily delivered though. Body delivered easily and without incident. passed through moms legs and brought to her abdomen with a vigorous cry. Cord was clamped and cut at > 5 minutes. APGARS were 9 at one minute and 9 at five minutes respectively. Mouth was bulb suctioned. Intact placenta with a 3 vessel cord delivered spontaneously at 0408. She had trailing membranes that took about 5 minutes to tease out but did feel to delivery completely. Fundus firm. 2nd degree identified that was only near the external perineum and did not extend very. With shared decision making it was decided to not repair the laceration.QBL 75 mL. Mother and baby stable; mother plans to breastfeed. weight pending. : 3 Para: 2 Weeks Gestation: 40.4 Admission Date: 10/30/22 Additional Details Amniotic Membrane Status: SROM Amniotic Membrane Rupture Date: 10/30/22 Amniotic Membrane Rupture Time: 03:50 Amniotic Membrane Fluid Description: Meconium Stained (moderatly stained) Analgesia/Anesthesia Type: None Waterbirth: No Pitcoin: Yes (after delivery only) Intrapartal Events: Mod/Heavy Meconium Fluid Labor Onset: 00:45 Complete: 03:47 Pushin:50 Heart: heart tones during second stage were not captured. The Novii monitor was lost right before pushing and with the short pushing duration there was not time to doppler for FHTs. Before pushing it was category 2 with baseline 125, + accels, moderate variability and a occasion variable with quick return to baseline. Delivery Details Delivery Date: 10/30/22 Delivery Time: 03:52 Route of delivery: Gender: Male Infant Viability: Alive; Heart Rate Present Position at Delivery: OA Delivery Details: Delivered over intact perineum via spontaneous vaginal delivery. 1 Minute Interval Total Score: 9 5 Minute Interval Total Score: 9 Additional Details Shoulder Dystocia: No Placenta Delivery Time: 04:08 Placental Delivery Description: Spontaneous (with trailing membranes) Procedure Done: Global Blood Loss: 75 Laceration: Perineal - 2nd Degree (no repair) Episiotomy Description: None Blood Loss Measurement Type: QBL Bakri Used: No Sponge/Need Count Correct: Yes Cord Vessel Description: 3 Vessels, Nuchal Cord (x2), Loose and Delivered through Event Summary Status: Mother and were stable after delivery. Disposition: floor
[2022-10-30] MEDS: DOCUSATE SODIUM 100 MG CAPSULE PO (08:26)
[2022-10-30] MEDS: IBUPROFEN 600 MG TABLET PO ×2 (11:51→18:08)
[2022-10-30] MEDS: ACETAMINOPHEN 500 MG TABLET 1000 MG PO ×2 (14:48→21:48)
[2022-10-31 00:03] VITALS: BP 106/65; PULSE 73; RESP 16; TEMP 36.7; O2SAT 96
[2022-10-31] MEDS: IBUPROFEN 600 MG TABLET PO (04:14)
[2022-10-31 05:27] VITALS: BP 99/65; PULSE 72; RESP 16; TEMP 36.8; O2SAT 97
[2022-10-31] MEDS: ACETAMINOPHEN 500 MG TABLET 1000 MG PO (08:38)
[2022-10-31] MEDS: DOCUSATE SODIUM 100 MG CAPSULE PO (08:39)
[2022-10-31 09:00] VITALS: BP 110/78; PULSE 67; RESP 16; TEMP 36.8
--- NOTE | 2022-10-31 11:27 | P.DS_ITS ---
DS: Providers Provider Date Seen: 10/31/22 Date of admission: 10/30/22 01:09 Primary care physician: Rhoda Gusman MD Admitting Clinician: Trang Moreno CNM Attending Physician on discharge: Trang Moreno CNM Date of Discharge: 10/31/22 DS: Diagnosis Discharge Diagnosis (1) care following vaginal delivery: Status: Acute (2) Lactating mother: Status: Acute (3) Anxiety with depression: Status: Acute Exam Narrative: Exam Narrative: GENERAL APPEARANCE:? normal affect, alert, no distress? MOOD:? appropriate? CHEST:? clear to auscultation and percussion? HEART:? regular rate and rhythm? ABDOMEN:? soft, non-tender the uterine fundus is 2 cm Below Umbilicus, Midline and is appropriate for the stage of recovery. ? PERINEUM:? mild edema of the perineum, there is a 2nd degree that is healing well.? EXTREMITIES:? normal and no edema? Patient has no complaints? No active bleeding?? Doing well? She is requesting discharge home.? Const: Vital Signs, click to edit/add: Vital Signs - 24 hr 10/30/22 11:53 10/30/22 15:44 10/30/22 19:22 Temperature 97.7 F 98.7 F 98.1 F Pulse Rate [Pulse Oximeter] 65 75 64 Respiratory Rate 16 16 Blood Pressure [Le ft Arm] 112/72 109/66 108/70 Pulse Oximetry 97 96 97 Oxygen Delivery Me thod Room Air Room Air Room Air 10/31/22 00:03 10/31/22 05:27 10/31/22 09:00 Temperature 98.1 F 98.2 F 98.2 F Pulse Rate [Pulse Oximeter] 73 72 67 Respiratory Rate 16 16 16 Blood Pressure [Le ft Arm] 106/65 99/65 110/78 Pulse Oximetry 96 97 Oxygen Delivery Me thod Room Air Room Air Room Air Documenting provider has reviewed patient's vital signs: yes OB - DS: Summary Hospital Course Hospital Course: Patient is a 32year old, G 3 now P 3? admitted on 10/30/22 at 40 Weeks, 4 Days gestation for active labor.? She had an uncomplicated vaginal delivery.?She progressed quickly and delivered unmedicated in hands and knees. She delivered a viable male infant.? She is breast feeding and reports things are well.? Postpar benjamin the patient has done well.? Her pain is well controlled with current medications.? She has no new complaints.? Vitals have been stable. She has remained afebrile. She is voiding without difficulty. She is passing gas and has not had a bowel movement. She is ambulating and denies any dizziness. She is planning Mirena IUD for control.?She does have a history of anxiety and is currently on Sertraline. she plans to continue this dose at this time and is aware to seek care if she needs a dose adjustment.?? Peripartum Data delivery method: Vaginal Laceration description: Perineal - 2nd Degree (not repaired) Episiotomy description: None complications: none [place] Gender: Male Infant Discharge Plan: Home Status at Discharge Functional status at discharge: independent ambulation Overall status at discharge: patient is progressing back to baseline Time Spent with Patient Time attestation: Total time spent providing and/or coordinating discharge services: Discharge Plan Discharge Disposition: Home, Self-Care Date of Admission: 10/30/22 01:09 Attending Provider on Discharge: Trang Moreno Primary Care Provider: Rhoda Gusman Condition: Stable Anticipated Discharge Date/Time: 10/31/22 12:00 Discharge Medications: New docusate sodium 100 mg Capsule 100 mg PO DAILY Qty: 60 0RF Rx Instructions: Take 1-2 tablets daily as needed for constipation. ibuprofen 600 mg Tablet 600 mg PO Q6H PRNQty: 60 0RF Continued Classic 28 mg iron- 800 mcg tablet 1 tab PO DAILY sertraline 50 mg tablet 25 mg PO QDAY Patient Comments: TAKE 1/2 TABLET BY MOUTH EVERY DAY FOR 1 WEEK. INCREASE TO 1 TABLET Fish Oil 300-500 mg capsule 1 cap PO DAILY epinephrine 0.3 mg/0.3 mL auto-injector 0.3 ml IM Q5-15M PRNQty: 2 0RF Rx Instructions: do not exceed 2 doses per episode albuterol sulfate 90 mcg/actuation HFA aerosol inhaler 2 puff inhalation Q6-8H PRN (Reason: bronchospasm) Qty: 8.5 12RF Discontinued aspirin 81 mg capsule 81 mg PO QDAY Discharge Orders: Discharge Order (Routine); Ordered 10/31/22 Ordered By: Trang Moreno Patient Education: OB Vaginal/Breast Feeding Additional Instructions: Discharge instructions were reviewed with the patient including signs and symptoms of infection and home going medications.? Lifting Restrictions: 20 pounds for 6? weeks? ?? Do not drive while taking narcotic pain meds.? Off Work or School for 6 weeks.? ?? Symptoms to report to doctor:? -Bleeding that saturates more than one pad per hour? -Passing clots larger than the size of a golf ball? -Pain not relieved by prescribed medication? -Fever above 100.4 degrees Fahrenheit? -A foul vaginal odor? -Difficulty in emotions, mood and functions? -Thoughts of hurting yourself and/or ? -Painful, reddened area in your breast? -Any drainage, redness or tenderness in your IV/epidural site? -Severe headache that doesn't improve after taking medications? -Changes in vision, including temporary loss of vision, blurred vision, and/or light sensitivity? -Upper abdominal pain (usually under ribs on the right side)? -Decrease in urination or painful, frequent urinating? -Chest pain? -Shortness of breath? -Tenderness or pain with redness and/swelling in the calf(s) of your leg? ?? Follow Up in clinic in 2 and 6 weeks.? ?? consultation services are available to all mothers and babies for the first year after delivery.? To make an appointment, please call [phone].? Activity Level: Activity as Tolerated Discharge Diet: Regular Follow Up Appointments: [facility] [Provider Group] Rhoda Gusman MD [Primary Care Provider] - Forms: [employer] Info Instructions
== END 2022-10-31 13:30 | disposition home or self-care (01) | DRG 807 ==
PROVIDERS: Admitting Provider Advanced Practice Midwife; PCP Family Medicine; Visit Provider Advanced Practice Midwife
DX: O99.344 Other mental disorders complicating childbirth (principal); Z37.0 Single live birth; F41.8 Other specified anxiety disorders; O77.0 Labor and delivery complicated by meconium in amniotic fluid; O70.1 Second degree perineal laceration during delivery; Z3A.40 40 weeks gestation of pregnancy
CPT/HCPCS: A9270; J2405

== ENCOUNTER 2022-11-10 12:51 | Outpatient (CLI) | payer OTHER, SELFPAY ==
--- NOTE | 2022-11-10 17:00 | P.LACCB_ITS ---
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 Delivery Information Delivery type: Vaginal Weeks Gestation: 40.4 Gestational Age: AGA Weight: 3.615 kg Discharge Weight: 3.502 kg Baby's Information Baby's Age at Visit: 11 days Baby's Provider or Clinic: Dr. Barraza Jaundice: No Reason for Consult Reason for Consult: concern for transfer, sleepy at breast Past Experience Past Experience: Yes (nursed her other two children over a year each) Current Frequency of Day Feedings: every 2 - 3 hours Frequency of Night Feedings: every 3 - 4 hours Both Breasts: No Suck: not very aggressive Latch: looses the latch Length of Time: 30 - 40 minutes Pumping Pumping: No (will use her Haakaa on the sie baby isn't nursing from) Quantity Pumped: about 2 oz Supplementing EMB Supplement: No Formula Supplement: No Baby Elimination Number of Wet Diapers a Day: 6 - 8 Number of BM a Day: 8 - 10, yellow and seedy Breast/Nipple Condition Breast Information: WNL, large Engorgement: No Maternal Nipple Condition - Left: Common Nipple Maternal Nipple Condition - Right: Common Nipple Sore Nipples: No Onsite Pre-Feed weight: 3.562 kg Post-Feed weight: 3.624 kg Milk Transferred (mL): 56 Assessments/Interventions Assessments/Interventions: Assessments/Interventions: Met with mom and this now 11 day old ex- term AGA baby for consult. Mom reports baby is very sleepy at breast and can't maintain a good latch. She has a good milk supply but is concerned he's not getting much b/c he comes off so frequently during nursing sessions. She reports having to rouse him for almost every feeding, every 2 - 3 hours during the day and 3 - 4 hours overnight. She only offers one side and states feedings have become longer going from about 10 - 20 minutes to now 30 - 40 minutes. She uses her Haakaa on the side baby doesn't nurse from and gets about 2 oz total each time. POC have not supplemented with EBM/formula. Mom with very large breasts but they are symmetrical with rounded lower quadrants, intramammary distance is< 1.5 inches. Nipples are a little on the larger side but everted. They don't flatten or retract on compression and no damage is noted. Baby has only gained 6 grams/day since his last visit on 11/01; is only 1% below BW at 11 DOL. Mom denies any caput/cephalohematoma at delivery. States he did seem to be favoring turning to the right, but this seems to have resolved. Baby has equal ROM when moving his extremities. Baby has an significantly arched palate. Both his upper and lower frenulum appear to be WNL. He has a fairly strong suck on a finger, but isn't aggressive in pulling it back when it's withdrawn. There's a lack of coordination with the tongue when lateralizing. Baby has a slightly receding jaw. Mom latched baby to the left side and he had a fairly wide latch initially, but then his lower lip tucked in and that, along with mom's multiple let-downs, caused him to loose the latch. Initially there was a lot of coming/slipping off and on. With mom's large breasts the Dancer hold was a little difficult, but when she supported the breast directly under baby's jaw he was able to maintain the latch and nursed for 10 - 15 minutes without loosing the latch. As mom normally only offers one side he was weighed and had transferred 56 ml. Mom offered the right side and he was sleepy but nursed for 5 - 7 minutes transferring another 6 ml for a total of 62 ml. Mom was shown an exercise to hopefully help baby with tongue lateralization. Plan: 1. Mom to continue nursing every three hours, more often if baby shows feeding cues. Try supporting the breast like she did today in clinic to help baby maintain his latch. Offer both sides for now. 2. Will pump to empty if baby has a poor feeding and to comfort prn. 3. Make sure baby gets at least 8 feedings in 24 hours. If he has a poor session, offer 2 oz EBM. 4. Try the tongue exercise 3 - 5 times/day, 3 - 5 rounds each time. Handout given on local bodywork therapists. 5. Will f/u on 11/15 in [facility]. Meds Home Medications and Allergies Home Medications Medication Instructions Recorded Confirmed Type vits no.126-ferrous fum 1 tab PO DAILY 01/22/22 11/15/22 History 28 mg iron-folic acid 800 mcg tablet (Classic ) sertraline 50 mg tablet 25 mg PO QDAY 07/07/22 11/15/22 History docusate sodium 100 mg capsule 100 mg PO DAILY PRN 11/15/22 History Allergies Allergy/AdvReac Type Severity Reaction Status Date / Time No Known Drug Allergies Allergy Verified 11/15/22 08:49
== END 2022-11-10 12:52 | disposition home or self-care (01) ==
PROVIDERS: PCP Family Medicine; Visit Provider Advanced Practice Midwife
DX: Z39.1 Encounter for care and examination of lactating mother (principal)
CPT/HCPCS: 99211

== ENCOUNTER 2022-12-13 09:14 | Outpatient (CLI) | payer OTHER, SELFPAY | END 2022-12-13 09:15 | disposition home or self-care (01) | LOC: NFLDREF 09:15 | PROVIDERS: PCP Family Medicine; Visit Provider Advanced Practice Midwife | DX: R32 Unspecified urinary incontinence (principal) | CPT/HCPCS: 87086 ==

== ENCOUNTER 2023-05-07 08:51 | Outpatient (CLI) | payer OTHER, SELFPAY ==
--- OUTSIDE RECORDS SUMMARY | 2023-05-09 05:30 | XMS_ITS | Clinical Summary ---
Author Name Unknown Organization [facility] Address [address] [place] [address] Care Team Providers Care Summer Law Clerk Name Role Phone Shakira Bright Primary Care Provider Source Comments You are receiving this document as you are listed as the primary care provider,follow-up provider, or the patient has been referred to you for consultation.This is in compliance with the Medicare and[facility] E[facility] Incentive [facility],which states Providers who transition their patient to another setting of careor provider of care or refers their patient to another provider of care shouldprovide summary care record for each transition of care or referral. [facility] Allergies No known active allergies Medications Medication Sig Dispensed Refills Start Date End Date Status NIFEdipine (PROCARDIA) 10 MG capsule Take 10 mg by mouth daily as needed for Other. 0 Active ranitidine (ZANTAC) 150 MG tablet Take 1 Tab by mouth two times a day. 180 Tab 3 02/12/2016 Active MedroxyPROGESTERone Acetate (DEPO-PROVERA IM) 0 Active citalopram (CELEXA) 20 MG tabletIndications:Depr ession, major, single episode, moderate (HRC),SARAVANNA (generalized anxiety disorder) (HRC) Take 0.5 Tabs by mouth daily. 0 07/08/2017 Active methylPREDNISolone (MEDROL 21 TABLET DOSEPACK) 4 MG tablet Follow package directions 21 Tab 0 08/15/2017 Active ondansetron (ZOFRAN-ODT) 4 MG disintegrating tablet Take 1 Tab by mouth every 8 hours as needed. 20 Tab 0 08/15/2017 Active Active Problems Problem Noted Date Diagnosed Date Raynaud's disease without gangrene 02/12/2016 Depression, major, single episode, moderate 01/26 Immunizations Name Administration Dates Next Due Influenza IIV4 (Quadrivalent) 0.5mL (04160) 01/26 Influenza, Unspecified Formulation 02/01/2017 Td (7+ yrs) [...] 0 (1 standard drink = 0.6 oz pur e alcohol) occasionally Sex and Gender Information Value Date Recorded Sex Assigned at Not on file Gender Identity Not on file Sexual Orientation Not on file Last Filed Vital Signs Vital Sign Reading Time Taken Comments Blood Pressure 112/80 08/15/2017 4:07 PM CDT Pulse 84 08/15/2017 4:07 PM CDT Temperature 36.4 ??C (97.5 ??F) 04/21/2017 9:48 AM CS T Respiratory Rate - - Oxygen Saturation - - Inhaled Oxygen Concentration - - Weight 122 kg (269 lb) 08/15/2017 4:07 PM CDT Height 170.2 cm (5' 7) 08/15/2017 4:07 PM CDT Body Mass Index 42.13 08/15/2017 4:07 PM CDT Plan of Treatment Health Maintenance Due Date Last Done Comments Cervical Cancer Screening Due 1991 Hep C Screening (Preventive Services) 1991 HepB (1) 1991 HIV Screening (Preventive Services) 2007 Adult Preventive Visit 02/11/2018 02/12/2016 COVID-19 Vaccine ( season) 2022 06/06/2020, 05/09/2020 Influenza (#1) 2022 01/31/2020, 10/0 10/2018, 01/17/2018, Additional history exists DTaP/Tdap/Td (3 - Tdap) 11/30/2028 12/01/19 19, 07/23/2016, 07/23/2016, Additional history exists Zoster/Shingles (1 of 2) 2041 HPV Vaccine Aged Out No longer eligi ble based on patient's age to complete this topic HepA Aged Out No longer eligi ble based on patient's age to complete this topic Hib Aged Out No longer eligi ble based on patient's age to complete this topic IPV (Polio) Aged Out No longer eligi ble based on patient's age to complete this topic MCV4 Aged Out No longer eligi ble based on patient's age to complete this topic Pneumococcal Aged Out No longer eligi ble based on patient's age to complete this topic Care Teams Summer Law Clerk Relationship Specialty Start Date End Date Shakira Bright DO [address] [place] [address] PCP - General Family Practice 02/02/16
--- OUTSIDE RECORDS SUMMARY | 2023-05-09 05:30 | XMS_ITS | Clinical Summary ---
Author Name Unknown Organization [facility] Address [place] [address] Care Team Providers Care Account Retention Representative Name Role Phone Rhoda Gusman MD Primary Care Provider + Family History Medical History Relation Name Comments Cancer-breast Maternal Grandmother Relation Name Status Comments Maternal Grandmother 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 Tobacco Use Types Packs/Day Years Used Date Smoking Tobacco: Never Assessed Sex and Gender Information Value Date Recorded Sex Assigned at Not on file Gender Identity Not on file Sexual Orientation Not on file Obstetrics History Plan of Treatment Health Maintenance Due Date Last Done Comments Tdap 2002 Depression screening for age 12+ 2003 HIV for age 15-65 2006 BMI (ht and wt on same day) for age 18+ 2009 Hepatitis C screening for age 18-79 2009 Tetanus booster 2011 COVID-19 vaccine series (3 - Moderna series) 04/27/2021 03/02/2021, 06/06/2020 Influenza for age 9-49 11/26/2022 Pap test for age 21-65 03/09/2024 , 03/09/2021, 06/28/2018 Care Teams Account Retention Representative Relationship Specialty Start Date End Date Rhoda Gusman MD [address] [place] [id number] PCP - General Family Practice 05/14/22
== END 2023-05-07 08:52 | disposition home or self-care (01) ==
LOC: NFLDREF 05-09 05:29
PROVIDERS: PCP Family Medicine; Referring Provider Family Medicine; Visit Provider Nurse Practitioner Family
DX: R30.0 Dysuria (principal); N94.9 Unspecified condition associated with female genital organs and menstrual cycle; R32 Unspecified urinary incontinence
CPT/HCPCS: 87086

== ENCOUNTER 2023-05-12 07:30 | Outpatient (RCR) | payer OTHER, SELFPAY | END 2023-09-09 23:59 | disposition home or self-care (01) | PROVIDERS: PCP Family Medicine; Visit Provider Advanced Practice Midwife | DX: R32 Unspecified urinary incontinence (principal); Z51.89 Encounter for other specified aftercare | CPT/HCPCS: 97110; 97140; 97162; 97535 ==

== ENCOUNTER 2023-05-18 08:17 | Outpatient (CLI) | payer OTHER, SELFPAY ==
--- OUTSIDE RECORDS SUMMARY | 2023-05-18 08:19 | XMS_ITS | Clinical Summary ---
Author Name Unknown Organization [facility] Address [place] [address] Care Team Providers Care Regrinder Name Role Phone Rhoda Gusman MD Primary [...] 21-65 03/09/2024 , 03/09/2021, 06/28/2018 Care Teams Regrinder Relationship Specialty Start Date End Date Rhoda Gusman MD [address] [id number] PCP - General Family Practice 05/14/22
--- OUTSIDE RECORDS SUMMARY | 2023-05-18 08:19 | XMS_ITS | Clinical Summary ---
Author Name Unknown Organization [facility] Address [address] [place] [address] Care Team Providers Care Net Making Supervisor Name Role Phone Shakira Bright Primary Care Provider Source Comments You are receiving this document as you are listed as the primary care provider,follow-up provider, or the patient has been referred to you for consultation.This is in compliance with the Medicare and[facility] EHR Incentive Program,which states Providers who transition their patient to another setting of careor provider of care or refers their patient to another provider of care shouldprovide summary care record for each transition of care or referral. [facility] Allergies No known active allergies Medications Medication Sig Dispensed Refills Start Date End Date Status NIFEdipine (PROCARDIA) 10 MG capsule Take 10 mg by mouth daily as needed for Other. Active ranitidine (ZANTAC) 150 MG tablet Take 1 Tab by mouth two times a day. 180 Tab 3 02/12/2016 Active MedroxyPROGESTERone Acetate (DEPO-PROVERA IM) Active citalopram (CELEXA) 20 MG tabletIndications:Depr ession, major, single episode, moderate (HRC),SARAVANAN (generalized anxiety disorder) (HRC) Take 0.5 Tabs by mouth daily. 07/08/2017 Active methylPREDNISolone (MEDROL 21 TABLET DOSEPACK) 4 MG tablet Follow package directions 21 Tab 08/15/2017 Active ondansetron (ZOFRAN-ODT) 4 MG disintegrating tablet Take 1 Tab by mouth every 8 hours as needed. 20 Tab 08/15/2017 Active Active Problems Problem Noted Date Diagnosed Date Raynaud's disease without gangrene 02/12/2016 Depression, major, single episode, moderate 01/26 Immunizations Name Administration Dates Next Due Influenza IIV4 (Quadrivalent) 0.5mL (19597) 01/26 Influenza, Unspecified Formulation 02/01/2017 Td (7+ [...] 1991 Hep C Screening (Preventive Services) 1991 HIV Screening (Preventive Services) 2007 HepB (1) 2010 Adult Preventive Visit 02/11/2018 02/12/2016 COVID-19 Vaccine ( season) 2022 06/06/2020, 05/09/2020 Influenza (#1) 2022 01/31/2020, 1010/2018, 01/17/2018, Additional history exists DTaP/Tdap/Td (3 - Tdap) 11/30/2028 12/01/19 19, 07/23/2016, 07/23/2016 Zoster/Shingles (1 of 2) 2041 HPV Vaccine [...] age to complete this topic Care Teams Net Making Supervisor Relationship Specialty Start Date End Date Shakira Bright DO [address] [place] [address] PCP - General Family Practice 02/02/16
[2023-05-18 14:42] LABS: Bacterial Vaginosis* Not Detected (No Detected); Candida glab/krus Not Detected (No Detected); Candida species Not Detected (No Detected); Trichomonas vaginalis Not Detected (No Detected)
== END 2023-05-18 08:18 | disposition home or self-care (01) ==
LOC: FRMREF 08:17
PROVIDERS: PCP Family Medicine; Visit Provider Obstetrics & Gynecology
DX: N89.8 Other specified noninflammatory disorders of vagina (principal)
CPT/HCPCS: 81513; 87481; 87661

== ENCOUNTER 2023-08-31 06:19 | Emergency (ER) | payer OTHER, SELFPAY ==
[2023-08-31 06:29] VITALS: BP 118/80; PULSE 97; RESP 16; TEMP 36.8; O2SAT 95; BMI 37.6
--- NOTE | 2023-08-31 06:33 | ED_ITS ---
HPI - Eye Problem General Time Seen by Provider: 06:33 Date Seen: 08/31/23 Chief complaint: Eye Problems Stated complaint: LT eye pain redness Time Seen by Provider: 08/31/23 06:21 Source: patient, RN notes reviewed and old records reviewed Mode of arrival: ambulatory Limitations: no limitations History of Present Illness HPI Narrative: 33-year-old female who comes in with a swollen eye. Started on eyedrops a couple days ago but symptoms have gotten worse. No blurry vision. Related Data Home Medications ?Medication ?Instructions ?Recorded ?Confirmed vits no.126-ferrous fum 1 tab PO DAILY 01/22/22 08/31/23 28 mg iron-folic acid 800 mcg tablet (Classic ) sertraline 50 mg tablet 25 mg PO QDAY 07/07/22 08/31/23 Previous Rx's ?Medication ?Instructions ?Recorded epinephrine 0.3 mg/0.3 mL 0.3 ml IM Q5-15M PRN #2 ea 01/26/22 injection, auto-injector albuterol sulfate 90 mcg/actuation 2 puff inhalation Q6-8H PRN 08/21/22 aerosol inhaler bronchospasm #8.5 grams amoxicillin 875 mg-potassium 1 tab PO BID #10 tabs 08/31/23 clavulanate 125 mg tablet erythromycin 5 mg/gram (0.5 %) eye 1 applic ophthalmic (eye) TID 7 08/31/23 ointment days #3.5 grams olopatadine 0.1 % eye drops 1 drp ophthalmic (eye-left) BID 5 08/31/23 days #5 mL Allergies Allergy/AdvReac Type Severity Reaction Status Date / Time No Known Drug Allergies Allergy Verified 08/31/23 06:33 [facility] Medical History (Updated 08/31/23 @ 06:43 by Geovany Escobar MD) History of precipitous labor and delivery ?Z87.59 - Personal history of other complications of , childbirth and the puerperium (ICD-10) Normal spontaneous vaginal delivery (01/28/19) ?O80 - Encounter for full-term uncomplicated delivery (ICD-10) Exercise-induced bronchospasm ?J45.990 - Exercise induced bronchospasm (ICD-10) Surgical History Status post laparoscopic cholecystectomy (06/2019) ?Z90.49 - Acquired absence of other specified parts of digestive tract (ICD- 10) History of third molar tooth extraction (2006) ?K08.409 - Partial loss of teeth, unspecified cause, unspecified class (ICD- 10) History of bladder surgery (1997) ?Z98.890 - Other specified postprocedural states (ICD-10) Family History Maternal Grandmother Breast cancer Mother Depression Sister Depression Maternal Grandfather Heart disease Family/Other Kidney disease Paternal Grandmother Ovarian cancer Uncle Prostate cancer Other Lung cancer 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 Narrative: 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 , 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, 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 Non-smoker Social drinker- 2/week What is your current living situation?: I presently have a place to live Problems where you live: no known problems In the past 12 months, utilities in danger of being shut off: no In past 12 months, lack of transportation kept you from medical appts, meetings, work, or getting things needed for daily living: no In the past 12 mos, have been you worried that your food would run out before you had money to buy more?: never true In the past 12 mos, the food you bought just didn't last and you didn't have money to buy more?: never true Smoking Status: Never smoker Do you use any of these nicotine containing products: None Second hand tobacco smoke exposure: No How often do you have a drink containing alcohol: never How often do you have six or more drinks on one occasion: Never AUDIT-C Alcohol total score: 0 Non-prescribed substance use: denies use How often does anyone, including family, friends and others, physically hurt you : never How often does anyone, including family, friends and others, insult or talk down to you: never How often does anyone, including family, friends and others, threaten you with harm: never How often does anyone, including family, friends and others, scream or curse at you: never Little interest or pleasure in doing things: not at all Feeling down, depressed, or hopeless: several days service: No Exam Narrative: Exam Narrative: General: well nourished , NAD Head: Atraumatic and normocephalic ENT: External ears and external nose are normal Eyes: Left eye with marked injection especially inferiorly, some mild swelling of the upper and lower limbs. Extending down just past the zygomatic arch on th at side there is some erythema, swelling, and tenderness. Neck: Full spontaneous range of motion of the neck Lungs: No respiratory distress Musculoskeletal: No tenderness or deformity Neurologic: No gross focal neurologic deficits Skin: No rashes Psych: Mood and affect are appropriate Const: Vital Signs, click to edit/add: Vital Signs - 24 hr 08/31/23 06:29 Temperature 98.3 F Pulse Rate [Pulse Oximeter] 97 Respiratory Rate 16 Blood Pressure [Ri ght Upper Arm] 118/80 Pulse Oximetry 95 Oxygen Delivery Me thod Room Air Course Course ED Course: Patient seen and examined, prior records reviewed. Patient presents today for left eye redness pain and swelling. Says this started as some redness with thick discharge, was started on Polytrim drops and has gotten worse with increa sed redness and now some swelling of the eyelid as well. On exam here, conjunctival injection especially inferiorly, swelling of the upper and lower lips with some erythema tracking inferiorly down to the orbital rim. Symptoms are most consistent with conjunctivitis with overlying allergic reaction to her Polytrim drop. Because the redness extending to the orbital rim and pain and tenderness, possible mild preseptal cellulitis as well. No proptosis or retro- orbital process. Patient will be switched from Polytrim drops to erythromycin ointment as well as Patanol drops to help with the allergic reaction and Augmentin for possible preseptal cellulitis although again I suspect this is more related to reaction to the Ploytrim eyedrops Vital Signs Vital signs: Initial Vital Signs Temperature 98.3 F 08/31/23 06:29 Temperature Source Temporal Artery Scan 08/31/23 06:29 Pulse Rate 97 08/31/23 06:29 Respiratory Rate 16 08/31/23 06:29 Blood Pressure 118/80 08/31/23 06:29 Blood Pressure Mean 92 08/31/23 06:29 Blood Pressure Position Sitting 08/31/23 06:29 Pulse Oximetry 95 08/31/23 06:29 Oxygen Delivery Method Room Air 08/31/23 06:29 Vital Signs Temperature 98.3 F 08/31/23 06:29 Pulse Rate 97 08/31/23 06:29 Respiratory Rate 16 08/31/23 06:29 Blood Pressure 118/80 08/31/23 06:29 Pulse Oximetry 95 08/31/23 06:29 Oxygen Delivery Method Room Air 08/31/23 06:29 Temperature 98.3 F 08/31/23 06:29 Pulse Rate 97 08/31/23 06:29 Respiratory Rate 16 08/31/23 06:29 Blood Pressure 118/80 08/31/23 06:29 Pulse Oximetry 95 08/31/23 06:29 Oxygen Delivery Method Room Air 08/31/23 06:29 Discharge Plan Discharge Clinical Impression: Conjunctivitis, Allergic reaction, Preseptal cellulitis of left lower eyelid Patient Disposition: Home, Self-Care Instructions: Periorbital Cellulitis (ED), Conjunctivitis (ED) Additional Instructions: Take Benadryl every 6 hours as desired for itching Cool packs to the left eye 15-20 minutes time a couple of times a day Tylenol or ibuprofen as needed for pain Use eye drop, wait [address] eye ointment Activity Level: No Restrictions Discharge Diet: Regular Prescriptions: New olopatadine 0.1 % drops 1 drp ophthalmic (eye-left) BID 5 Days Qty: 5 0RF Rx Instructions: separate doses by at least 6-8 hours amoxicillin-pot clavulanate 875-125 mg tablet 1 tab PO BID Qty: 10 0RF erythromycin 5 mg/gram (0.5 %) ointment 1 applic ophthalmic (eye) TID 7 Days Qty: 3.5 0RF No Action Classic 28 mg iron- 800 mcg tablet 1 tab PO DAILY sertraline 50 mg tablet 25 mg PO QDAY Patient Comments: TAKE 1/2 TABLET BY MOUTH EVERY DAY FOR 1 WEEK. INCREASE TO 1 TABLET epinephrine 0.3 mg/0.3 mL auto-injector 0.3 ml IM Q5-15M PRNQty: 2 0RF Rx Instructions: do not exceed 2 doses per episode albuterol sulfate 90 mcg/actuation HFA aerosol inhaler 2 puff inhalation Q6-8H PRN (Reason: bronchospasm) Qty: 8.5 12RF Follow Up/Referrals: Rhoda Gusman MD [Primary Care Provider] - Stand Alone Forms: MyHealth Info Instructions
--- OUTSIDE RECORDS SUMMARY | 2023-08-31 07:01 | XMS_ITS | Clinical Summary ---
Author Organization [employer] [facility] Address [place], [place] [address] Care Team Providers Care Water Gas Operator Name Role Phone Rhoda Gusman MD Primary [...] age 18+ 2009 Hepatitis C screening for ag e 18-79 2009 Tetanus booster 2011 COVID-19 vaccine series (3 2022-24 season) 2022 03/02/2021, 06/06/2020 Influenza for age 9-49 11/27/2023 Pap test for age 21-65 03/09/2024 , 03/09/2021, 06/28/2018 Pneumococcal series for age 6-64 Aged Out No longer eligible b ased on patient's age to complete this topic Procedures Procedure Name Priority Date/Time Associated Diagnosis Comments ROSE GRADING SUPERVISOR THIN PREP PAP SCREEN IMAGED Routine 03/09/2021 1:30 PM SKATE MAKER from Last 3 Months or Most Recently Relevant to Health Maintenance Results * ROSE GRADING SUPERVISOR THIN PREP PAP SCREEN IMAGED (03/09/2021 1:30 PM SKATE MAKER) Case Report Gynecologic Cytology Report ? Case: [id number] ? Authorizing Provider: ??Mely Parker, LEROY ? Collected: ? 03/09/2021 1330 ? Ordering Location: ? [facility] ?Received: ?03/11/2021 0746 ? First Screen: ?Debby Tse ? Specimen: ?ROSE GRADING SUPERVISOR ThinPrep Vial Screening, Cervical/Vaginal ? 03/26/2021 1:44 PM [facility] ENTRAL LABORATORY INTERPRETATION/ RESULT NEGATIVE FOR INTRAEPITHELIAL LESION OR MALIGNANCY (NIL) (none) 03/26/2021 1:44 PM [facility] ENTRKY LABORATORY IMEN ADEQUACY Satisfactory for evaluation No endocervical component seen in a patient 03/26/2021 1:44 PM SKATE MAKER [facility] ENTRAL LABORATORY HPV REQUEST HPV and PAP 03/26/2021 1:44 PM SKATE MAKER [facility] ENTRAL LABORATORY Last Pap Date 06/28/2018 03/26/2021 1:44 PM [facility] ENTRAL LABORATORY Menstrual Status 03/26/2021 1:44 PM [facility] ENTRAL LABORATORY Additional Information 03/26/2021 1:44 PM SKATE MAKER [facility] ENTRKY LABORATORY Comment: Interpreted at [facility] - [address] [place] [address] [place] [address] Automated Review Successful 03/26/2021 1:44 PM SKATE MAKER [facility] Comment:Specimen processed s uccessfully by automated fairground operator device, ThinPrep Imaging System, [employer] ANCILLARY TESTING ROSE GRADING SUPERVISOR HPV Ordered, Please see separate report 03/26/2021 1:44 PM SKATE MAKER [facility] Note The pap test is a screening technique, not a diagnostic procedure. It is used primarily to screen for squamous cancers and precursor lesions. Published studies have shown that it is subject to both false negative and false positive results. The pap test should not be used as the sole means to diagnose or exclude pre-malignant and malignant lesions. 03/26/2021 1:44 PM SKATE MAKER [facility] Other (Cervical/Vagina l) 03/09/2021 1:30 PM SKATE MAKER 03/11/2021 7:46 AM SKATE MAKER Mely Parker CNM [facility]OLOG[facility]OLOG[facility] [address] [place] [address], [place] from Last 3 Months or Most Recently Relevant to Health Maintenance Care Teams Water Gas Operator Relationship Specialty Start Date End Date Rhoda Gusman MD [address] [place] [address] PCP - General Family Practice 05/14/22
--- OUTSIDE RECORDS SUMMARY | 2023-08-31 07:01 | XMS_ITS | Clinical Summary ---
Author Organization [facility] Address [address] [address] Care Team Providers Care Ski Patrol Officer Name Role Phone HarleenShakira burnham Stuart SWEENEY Primary Care Provider Source Comments You are receiving this document as you are listed as the primary care provider,follow-up provider, or the patient has been referred to you for consultation.This is in compliance with the Medicare and[facility] Hospital[facility] EHR Incentive Program,which states Providers who transition their patient to another setting of careor provider of care or refers their patient to another provider of care shouldprovide summary care record for each transition of care or referral. [employer] Allergies No known active allergies Medications Medication [...] Dates Next Due Influenza IIV4 (Quadrivalent) 0.5mL (92712) 01/26 Influenza, Unspecified Formulation 02/01/2017 Td (7+ [...] Vaccine ( season) 2022 06/06/2020, 05/09/2020 Influenza (Season Ended) 2023 020, 01/02/2019, 01/17/2018, Additional history exists DTaP/Tdap/Td (3 - [...] age to complete this topic Care Teams Ski Patrol Officer Relationship Specialty Start Date End Date Shakira Bright DO [address] [place] [address] PCP - General Family Practice 02/02/16
== END 2023-08-31 07:01 | disposition home or self-care (01) ==
LOC: ED 07:00
PROVIDERS: Emergency Provider Family Medicine; PCP Family Medicine
DX: H10.022 Other mucopurulent conjunctivitis, left eye (principal); L03.213 Periorbital cellulitis
CPT/HCPCS: 99283

== ENCOUNTER 2023-10-03 07:48 | Outpatient (CLI) | payer OTHER, SELFPAY ==
--- OUTSIDE RECORDS SUMMARY | 2023-10-03 14:59 | XMS_ITS | Clinical Summary ---
Author Organization [employer] [facility] Address [place], [place] [address] Care Team Providers Care Jinrikisha Driver Name Role Phone Rhoda Gusman MD Primary [...] Procedure Name Priority Date/Time Associated Diagnosis Comments COMMERCIAL ELECTRICIAN THIN PREP PAP SCREEN IMAGED Routine 03/09/2021 1:30 PM GIS TECHNICIAN from Last 3 Months or Most Recently Relevant to Health Maintenance Results * COMMERCIAL ELECTRICIAN THIN PREP PAP SCREEN IMAGED (03/09/2021 1:30 PM GIS TECHNICIAN) Case Report Gynecologic Cytology Report ? Case: [id number] ? Authorizing Provider: ??Mely Parker, LEROY ? Collected: ? 03/09/2021 1330 ? Ordering Location: ? [facility] ?Received: ?03/11/2021 0746 ? First Screen: ?Debby Tse ? Specimen: ?COMMERCIAL ELECTRICIAN ThinPrep Vial Screening, Cervical/Vaginal ? 03/26/2021 1:44 PM [facility] [employer] [facility] ENTRAL LABORATORY INTERPRETATION/ RESULT NEGATIVE FOR INTRAEPITHELIAL LESION OR MALIGNANCY (NIL) (none) 03/26/2021 1:44 PM [facility] [employer] ENTRKS LABORATORY IMEN ADEQUACY Satisfactory for evaluation No endocervical component seen in a patient 03/26/2021 1:44 PM GIS TECHNICIAN [employer] [facility] ENTRAL LABORATORY HPV REQUEST HPV and PAP 03/26/2021 1:44 PM GIS TECHNICIAN [employer] ENTRAL LABORATORY Last Pap Date 06/28/2018 03/26/2021 1:44 PM [facility] [employer] ENTRAL LABORATORY Menstrual Status 03/26/2021 1:44 PM [facility] [employer] [facility] ENTRAL LABORATORY Additional Information 03/26/2021 1:44 PM GIS TECHNICIAN [facility] ENTRKS LABORATORY Comment: Interpreted at [facility] - [address] [place] [address] [place] [address] Automated Review Successful 03/26/2021 1:44 PM GIS TECHNICIAN [facility] Comment:Specimen processed s uccessfully by automated public relations supervisor device, ThinPrep Imaging System, [employer] ANCILLARY TESTING COMMERCIAL ELECTRICIAN HPV Ordered, Please see separate report 03/26/2021 1:44 PM GIS TECHNICIAN [facility] Note The pap test is a screening technique, not a diagnostic procedure. It is used primarily to screen for squamous cancers and precursor lesions. Published studies have shown that it is subject to both false negative and false positive results. The pap test should not be used as the sole means to diagnose or exclude pre-malignant and malignant lesions. 03/26/2021 1:44 PM GIS TECHNICIAN [facility] Other (Cervical/Vagina l) 03/09/2021 1:30 PM GIS TECHNICIAN 03/11/2021 7:46 AM GIS TECHNICIAN Mely Parker CNM PATHOLOGY/[facility]TOLOG[facility] [address] [place] [address], [place] from Last 3 Months or Most Recently Relevant to Health Maintenance Care Teams Jinrikisha Driver Relationship Specialty Start Date End Date Rhoda Gusman MD [address] [place] [address] PCP - General Family Practice 05/14/22
--- OUTSIDE RECORDS SUMMARY | 2023-10-03 14:59 | XMS_ITS | Clinical Summary ---
Author Organization [facility] Address [address], [place] [address] Care Team Providers Care Vet Assistant Name Role Phone HarleenShakira burnham Stuart SWEENEY Primary Care Provider Source Comments You are receiving this document as you are listed as the primary care provider,follow-up provider, or the patient has been referred to you for consultation.This is in compliance with the Medicare and[facility] Hospitalcaid EHR Incentive Program,which states Providers who transition their patient to another setting of careor provider of care or refers their patient to another provider of care shouldprovide summary care record for each transition of care or referral. [employer] Allergies No known active allergies Medications Medication [...] Dates Next Due Influenza IIV4 (Quadrivalent) 0.5mL (57867) 01/26 Influenza, Unspecified Formulation 02/01/2017 Td (7+ [...] ( season) 2022 06/06/2020, 05/09/2020 Influenza (#1) 2023 01/31/2020, 10/10/2018, 01/17/2018, Additional history exists DTaP/Tdap/Td (3 - [...] age to complete this topic Care Teams Vet Assistant Relationship Specialty Start Date End Date Shakira Bright DO [address] [place] [address] PCP - General Family Practice 02/02/16
== END 2023-10-03 07:49 | disposition home or self-care (01) ==
LOC: NFLDREF 14:58
PROVIDERS: PCP Family Medicine; Referring Provider Family Medicine; Visit Provider Family Medicine
DX: E78.5 Hyperlipidemia, unspecified (principal); Z13.228 Encounter for screening for other metabolic disorders; Z13.29 Encounter for screening for other suspected endocrine disorder
CPT/HCPCS: 80053; 80061; 84443

== ENCOUNTER 2024-10-13 12:30 | Emergency (ER) | payer OTHER, SELFPAY ==
--- OUTSIDE RECORDS SUMMARY | 2024-10-13 12:32 | XMS_ITS | Clinical Summary ---
Author Organization [facility] Address [address], [place] [address] Care Team Providers Care Litharge Mill Operator Name Role Phone Shakira Bright Primary Care Provider Source Comments You are receiving this document as you are listed as the primary care provider,follow-up provider, or the patient has been referred to you for consultation.This is in compliance with the Medicare andSt. [facility] Hospitalcaid EHR Incentive Program,which states Providers who transition their patient to another setting of careor provider of care or refers their patient to another provider of care shouldprovide summary care record for each transition of care or referral. [facility] Allergies No known active allergies Medications * This document contains information received from the source organization and may not represent a complete record from that organization. NIFEdipine (PROCARDIA) 10 MG capsule Take 10 mg by mouth daily as needed for Other. Active ranitidine (ZANTAC) 150 MG tablet Take 1 Tab by mouth two times a day. 180 Tab 3 6 Active MedroxyPROGESTERon e Acetate (DEPO-PROVERA IM) Ac tive citalopram (CELEXA) 20 MG tabletIndications: Depression, major, single episode, moderate (HRC),SARAVANAN (generalized anxiety disorder) (HRC) Take 0.5 Tabs by mouth daily. 8 Active methylPREDNISolone (MEDROL 21 TABLET DOSEPACK) 4 MG tablet Follow package directions 21 Tab 8 Active ondansetron (ZOFRAN-ODT) 4 MG disintegrating tablet Take 1 Tab by mouth every 8 hours as needed. 20 Tab 8 Active Active Problems Problem Noted Date Diagnosed Date Raynaud's disease without gangrene 02/12/2016 Depression, major, single episode, moderate 01/26 Immunizations Immunization Administration Dates Next Due Influenza IIV4 (Quadrivalent) 0.5mL (99636) 01/26 Influenza, Unspecified Formulation 02/01/2017 Td (7+ [...] = 0.6 oz pur e alcohol) occasionally Comments No Sex and Gender Information Value Date Recorded Sex Assigned at Not on file Legal Sex Female 8:55 AM DRY STARCH SUPERVISOR Gender Identity Not on file Sexual Orientation Not on file Last Filed Vital Signs Vital Sign Reading Time Taken Comments Blood Pressure 112/80 08/15/2017 4:07 PM CDT Pulse 84 08/15/2017 4:07 PM CDT Temperature 36.4 C (97.5 F) 04/21/2017 9:48 AM DRY STARCH SUPERVISOR Respiratory Rate - - Oxygen Saturation [...] 1991 HIV Screening (Preventive Services) 2007 HepB Vaccine (1) 2010 Adult Preventive Visit 02/11/2018 02/12/2016 COVID-19 Vaccine ( season) 2023 06/06/2020, 05/09/2020 Influenza Vaccine (#1) 2024 0, 01/02/2019, 01/17/2018, Additional history exists DTaP/Tdap/Td Vaccine (3 - Tdap) 11/30/2028 11/30/2018, 07/23/2016, 07/23/2016 Zoster/Shingles Vaccine (1 of 2) 2041 HPV Vaccine Aged Out No longer eligi ble based on patient's age to complete this topic HepA Vaccine Aged Out No longer eligi ble based on patient's age to complete this topic Hib Vaccine Aged Out No longer eligi ble based on patient's age to complete this topic IPV (Polio) Vaccine Aged Out No longe r eligible based on patient's age to complete this topic MCV4 Vaccine Aged Out No longer eligi ble based on patient's age to complete this topic Meningococcal B Vaccine Aged Out No l onger eligible based on patient's age to complete this topic Pneumococcal Vaccine Aged Out No long er eligible based on patient's age to complete this topic Care Teams Litharge Mill Operator Relationship Specialty Start Date End Date Shakira Bright DO [address] [place] [address] PCP - General Family Practice 02/02/16
--- OUTSIDE RECORDS SUMMARY | 2024-10-13 12:32 | XMS_ITS | Clinical Summary ---
Author Organization [facility] [facility] Address [address] [place] [address] Care Team Providers Care Prototype Sewer Name Role Phone Rhoda Gusman MD Primary Care Provider + Family History Medical History Relation Name Comments Cancer-breast Maternal Grandmother Relation Name Status Comments Maternal Grandmother 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 Tobacco Use Types Packs/Day Years Used Date Smoking Tobacco: Never Assessed Comments Unknown Sex and Gender Information Value Date Recorded Sex Assigned at Not on file Legal Sex Female 3:08 PM CDT Gender Identity Not on file Sexual Orientation Not on file Obstetrics History Plan of Treatment Health Maintenance Due Date Last Done Comments Tetanus booster 2002 Depression screening for age 12+ 2003 HIV for age 15-65 2006 BMI (ht and wt on same day) for age 18+ 2009 Hepatitis C screening for ag e 18-79 2009 Hepatitis B series for 19+ ( 1 of 3 - 19+ 3-dose series) 2010 COVID-19 vaccine series (2023- season) 2023 03/02/2021, 06/06/2020 Pap test for age 21-65 03/09/2024 , 03/09/2021, 06/28/2018 Influenza Vaccine (#1) 2024 Pneumococcal series for age 6-49 Aged Out No longer eligible b ased on patient's age to complete this topic Procedures Procedure Name Priority Date/Time Associated Diagnosis Comments INGOT SUPERVISOR THIN PREP PAP SCREEN IMAGED Routine 03/09/2021 1:30 PM TRUCK DISPATCHER from Last 3 Months or Most Recently Relevant to Health Maintenance Results * INGOT SUPERVISOR THIN PREP PAP SCREEN IMAGED (03/09/2021 1:30 PM TRUCK DISPATCHER) Case Report Gynecologic Cytology Report Case: [id number] Authorizing Provider: Mely Parker CNM Collected: 03/09/2021 1330 Ordering Location: [facility] Received: 03/11/2021 0746 First Screen: Debby Tse Specimen: INGOT SUPERVISOR ThinPrep Vial Screening, Cervical/Vaginal 03/26/2021 1:44 PM TRUCK DISPATCHER [facility] ENTRAL LABORATORY INTERPRETATION/ RESULT NEGATIVE FOR INTRAEPITHELIAL LESION OR MALIGNANCY (NIL) (none) 03/26/2021 1:44 PM TRUCK DISPATCHER [facility] ENTRAL LABORATORY at [address] TRUCK DISPATCHER SPECIMEN ADEQUACY Satisfactory for evaluation No endocervical component seen in a patient 03/26/2021 1:44 PM TRUCK DISPATCHER [employer] [facility] ENTRAL LABORATORY HPV REQUEST HPV and PAP 03/26/2021 1:44 PM TRUCK DISPATCHER [facility] ENTRAL LABORATORY Last Pap Date 06/28/2018 03/26/2021 1:44 PM TRUCK DISPATCHER [employer] [facility] EN[facility] Menstrual Status 03/26/2021 1:44 PM TRUCK DISPATCHER [facility] Additional Information 03/26/2021 1:44 PM TRUCK DISPATCHER [facility] Comment: Interpreted at [facility] - [address] [place] [id number] Automated Review Successful 03/26/2021 1:44 PM TRUCK DISPATCHER [employer] [facility] ENTRAL LABORATORY Comment:Specimen processed s uccessfully by automated bid manager device, ThinPrep Imaging System, [employer] ANCILLARY TESTING INGOT SUPERVISOR HPV Ordered, Please see separate report 03/26/2021 1:44 PM TRUCK DISPATCHER [facility] ENTRAL LABORATORY Note The pap test is a screening technique, not a diagnostic procedure. It is used primarily to screen for squamous cancers and precursor lesions. Published studies have shown that it is subject to both false negative and false positive results. The pap test should not be used as the sole means to diagnose or exclude pre-malignant and malignant lesions. 03/26/2021 1:44 PM TRUCK DISPATCHER [facility] ENTRAL LABORATORY Other (Cervical/Vagina l) 03/09/2021 1:30 PM TRUCK DISPATCHER 03/11/2021 7:46 AM TRUCK DISPATCHER us Mely Parker CNM PATHOLOGY/CYTOLOGY Final Re sult [facility] [address] [place] [address], [place] from Last 3 Months or Most Recently Relevant to Health Maintenance Care Teams Prototype Sewer Relationship Specialty Start Date End Date Rhoda Gusman MD [address] [place] [address] PCP - General Family Practice 05/14/22
[2024-10-13 12:59] VITALS: BP 144/87; PULSE 68; RESP 18; TEMP 37.3; O2SAT 99; BMI 39.9
--- NOTE | 2024-10-13 13:12 | ED.HA ---
HPI - Headache General Time Seen by Provider: 13:12 Date Seen: 10/13/24 Chief Complaint: Headache/Migraine Stated Complaint: Migraine 4 Day - Vomiting Time Seen by Provider: 10/13/24 12:39 Source: patient and RN notes reviewed Mode of arrival: ambulatory Limitations: no limitations History of Present Illness HPI Narrative: This 34-year-old female is coming to the ER with complaint of a headache for 4 days now. She had family members that were sick at home with a vomiting illness, no accompanying diarrhea. She had a fever at the beginning from Tuesday into but none since. She started with the headache and subsequently vomiting afterwards. She is had no diarrhea. Outside of having some discomfort before vomiting, she has had no abdominal pain. The headache is in both of her eyes, goes into her forehead. She does have photophobia and phonophobia. She has been trying to alternate Tylenol and ibuprofen. Her last migraine was over year ago. Her vomiting actually started after the headache. She is never had a migraine last this long. She feels a little discomfort in her anterior neck but nothing in the back of the neck. MD elicited complaint: headache Related Data Home Medications ?Medication ?Instructions ?Recorded ?Confirmed vits no.126-ferrous fum 1 tab PO DAILY 01/22/22 10/13/24 28 mg iron-folic acid 800 mcg tablet (Classic ) cyanocobalamin (vitamin B-12) 2,500 mcg PO QDAY 10/05/23 10/13/24 2,500 mcg tablet sertraline 50 mg tablet 50 mg PO DAILY 10/13/24 10/13/24 Previous Rx's ?Medication ?Instructions ?Recorded epinephrine 0.3 mg/0.3 mL 0.3 ml IM Q5-15M PRN #2 ea 01/26/22 injection, auto-injector albuterol sulfate 90 mcg/actuation 2 puff inhalation Q6-8H PRN 10/05/23 aerosol inhaler bronchospasm #8.5 grams Allergies Allergy/AdvReac Type Severity Reaction Status Date / Time polymyxin B Allergy Mild swelling Verified 10/13/24 13:04 and redness Review of Systems Status of ROS: Reports: 6 or more systems reviewed and unremarkable except as noted in History and below [facility] Medical History Obesity with body mass index (BMI) of 30.0 to 39.9 ?E66.9 - Obesity, unspecified (ICD-10) 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, unspecified (ICD-10) History of precipitous labor and delivery ?Z87.59 - Personal history of other complications of , childbirth and the puerperium (ICD-10) Exercise-induced bronchospasm ?J45.990 - Exercise induced bronchospasm (ICD-10) Surgical History IUD (intrauterine device) in place (12/2022) ?Z97.5 - Presence of (intrauterine) contraceptive device (ICD-10) Normal spontaneous vaginal delivery (01/28/19) ?O80 - Encounter for full-term uncomplicated delivery (ICD-10) Status post laparoscopic cholecystectomy (06/2019) ?Z90.49 - Acquired absence of other specified parts of digestive tract (ICD-10) History of third molar tooth extraction (2006) ?K08.409 - Partial loss of teeth, unspecified cause, unspecified class (ICD-10) History of bladder surgery (1997) ?Z98.890 - Other specified postprocedural states (ICD-10) Family History Maternal Grandmother Breast cancer, Onset Age: 48 Mother Anxiety and depression Sister Anxiety and depression Maternal Grandfather Hx of CABG, Onset Age: 70 Family/Other Kidney disease Paternal Grandmother Ovarian cancer, Onset Age: 53 Uncle Prostate cancer Other Lung cancer 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: , 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, 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 Exercising involving walking- once / week walks 1 M Non-smoker Social drinker- 2/week What is your current living situation?: I presently have a place to live Problems where you live: no known problems In the past 12 months, utilities in danger of being shut off: no In past 12 months, lack of transportation kept you from medical appts, meetings, work, or getting things needed for daily living: no In the past 12 mos, have been you worried that your food would run out before you had money to buy more?: never true In the past 12 mos, the food you bought just didn't last and you didn't have money to buy more?: never true Smoking Status: Never smoker Do you use any of these nicotine containing products: None Second hand tobacco smoke exposure: No How often do you have a drink containing alcohol: never How often do you have six or more drinks on one occasion: Never AUDIT-C Alcohol total score: 0 Non-prescribed substance use: denies use How often does anyone, including family, friends and others, physically hurt you: never How often does anyone, including family, friends and others, insult or talk down to you: never How often does anyone, including family, friends and others, threaten you with harm: never How often does anyone, including family, friends and others, scream or curse at you: never service: No Exam Const: Vital Signs, click to edit/add: Vital Signs - 24 hr 10/13/24 12:59 10/13/24 15:12 Temperature 99.2 F 98.5 F Pulse Rate [Right Pulse Oximeter] 68 62 Respiratory Rate 18 16 Blood Pressure [Ri ght Upper Arm] 144/87 H 104/61 Pulse Oximetry 99 99 Oxygen Delivery Me thod Room Air Room Air This 34-year-old female is seen in exam room 3, she has lights out the room, lying with her eyes closed but will open them. She is very pleasant, speech is normal, interactive but overall looks like she does not feel well. Pupils are equal round, sclera clear. Symmetrical facial function. Neck is supple, no adenopathy, no masses, no midline tenderness. Lungs are clear, good air entry, no wheezing or crackles, no tachypnea, no accessory muscle use. CV regular rate and rhythm, no murmur, normal S1-S2, S3-S4. Abdomen is soft, nontender, nondistended, no organomegaly, rebound or guarding, no masses. Skin visualized without rash. She did ambulate in. Motor strength is grossly normal between upper extremities and lower extremities. No sensory change noted. Documenting provider has reviewed patient's vital signs: yes Course Course ED Course: Patient certainly has a headache, this certainly could be part of a gastroenteritis or viral syndrome. Will treat her headache symptomatically and see how she feels, will get some baseline labs. Will initiate IV fluids, give her the Toradol and Reglan. Will consider other medications if needed. At this time, do not feel any head CT imaging is necessary, feel risk of radiation certainly outweighs any benefit in her clinical scenario at this time. Reevaluation(s) Time of Reevaluation #1: 14:49 Reevaluation #1: Patient is nearing completion of her IV fluids. She really is not feeling any benefit from any of the medications from her headache. During the 1st 36 hours of this, had repetitive consistent vomiting. Since then, seems as when the headache intensifies the vomiting worsens. It is not like it was initially with the recurrent vomiting. She has difficulty drinking now due to the head pain. She has had a bottle of Gatorade and some sips of water and that is all she has had today. We reviewed that her white blood count is normal, chemistries reassuring. C-reactive protein is just minimally elevated. I do not think that we are missing a significant bacterial illness, no bacterial meningitis. Do think that she maybe has went into a migraine status. Will give her a 2 L bolus with LR, give her 15 mg IV Toradol and see how she responds to that. May need to consider steroids. Time of Reevaluation #2: 16:00 Reevaluation #2: Patient definitely is improved after the Toradol and 2 L of IV fluids but headache is not gone. We discussed giving her another 15 mg IV Toradol to make maximal dosing of 30 mg. Will also give her 10 mg IV dexamethasone and she understands this may take a while to help with headache. She would like to try to discharge after these medicines and I do think it is reasonable. Vital Signs Vital signs: Initial Vital Signs Temperature 99.2 F 10/13/24 12:59 Temperature Source Temporal Artery Scan 10/13/24 12:59 Pulse Rate 68 10/13/24 12:59 Pulse Rhythm Regular 10/13/24 12:59 Pulse Strength 3+ Normal 10/13/24 12:59 Respiratory Rate 18 10/13/24 12:59 Blood Pressure 144/87 H 10/13/24 12:59 Blood Pressure Mean 106 H 10/13/24 12:59 Blood Pressure Position Sitting 10/13/24 12:59 Pulse Oximetry 99 10/13/24 12:59 Oxygen Delivery Method Room Air 10/13/24 12:59 Vital Signs Temperature 99.2 F 10/13/24 12:59 Pulse Rate 68 10/13/24 12:59 Respiratory Rate 18 10/13/24 12:59 Blood Pressure 144/87 H 10/13/24 12:59 Pulse Oximetry 99 10/13/24 12:59 Oxygen Delivery Method Room Air 10/13/24 12:59 Temperature 98.5 F 10/13/24 15:12 Pulse Rate 62 10/13/24 15:12 Respiratory Rate 16 10/13/24 15:12 Blood Pressure 104/61 10/13/24 15:12 Pulse Oximetry 99 10/13/24 15:12 Oxygen Delivery Method Room Air 10/13/24 15:12 Medications Administered Medications: Discontinued Medications Generic Name Dose Route Start Last Admin Trade Name Freq PRN Reason Stop Dose Admin Dexamethasone 10 mg 10/13/24 16:00 10/13/24 16:21 Dexamethasone 10 Mg/Ml Pf IVP 10/13/24 16:01 10 mg ONCE ONE Administration Diphenhydramine HCl 25 mg 10/13/24 13:20 10/13/24 13:44 Diphenhydramine 50 Mg/Ml Inj IVP 10/13/24 13:21 25 mg ONCE ONE Administration Sodium Chloride 1,000 mls @ 500 mls/hr 10/13/24 13:21 10/13/24 14:54 0.9 % Sodium Chloride 1000 Ml IV 10/13/24 15:20 Infused .Q2H RUBY Infusion Metoclopramide HCl 10 mg/ 102 mls @ 306 mls/hr 10/13/24 13:20 10/13/24 14:13 Sodium Chloride IVPB 10/13/24 13:21 Infused ONCE ONE Infusion Lactated Ringer's 1,000 mls @ 1,000 mls/hr 10/13/24 14:48 10/13/24 16:19 Lactated Ringers 1000 Ml IV 10/13/24 15:47 Infused .Q1H ONE Infusion Ketorolac Tromethamine 15 mg 10/13/24 14:44 10/13/24 14:53 Ketorolac 15 Mg/Ml Inj IVP 10/13/24 14:45 15 mg ONCE ONE Administration Ketorolac Tromethamine 15 mg 10/13/24 16:00 10/13/24 16:19 Ketorolac 15 Mg/Ml Inj IVP 10/13/24 16:01 15 mg ONCE ONE Administration Ondansetron HCl 4 mg 10/13/24 13:45 10/13/24 14:11 Ondansetron 2 Mg/Ml Inj IVP 10/13/24 13:46 4 mg ONCE ONE Administration MDM - Headache Lab Data Labs: Lab Results 10/13/24 Range/Units 13:32 WBC 6.96 (4.50-11.00) K/uL RBC 4.40 (4.00-5.20) m/uL Hgb 14.0 (12.0-16.0) gm/dL Hct 42.7 (33.0-51.0) % MCV 97 (80-100) fL MCH 32 (26-34) pg MCHC 33 (32-36) gm/dL RDW Coeff of Edin 12.4 (11.5-15.5) % Plt Count 230 (140-440) K/uL Neut % (Auto) 74.2 H (42.0-72.0) % Lymph % (Auto) 18.1 L (20-44) % [place] % (Auto) 6.5 (0.0-11.0) % Eos % (Auto) 0.4 (0.0-7.0) % Baso % (Auto) 0.1 (0.0-3.0) % Neut # (Auto) 5.20 (1.7-7.0) K/uL Lymph # (Auto) 1.30 (0.90-2.90) K/uL [place] # (Auto) 0.50 (0.00-0.90) K/UL Eos # (Auto) 0.03 (0.00-0.50) K/uL Baso # (Auto) 0.01 (0.00-0.30) K/uL Abs Immat Gran (auto) 0.05 (0.00-0.30) K/uL Imm/Tot Granulo (auto) 0.7 % Sodium 137 (135-149) mmol/L Potassium 4.0 (3.6-5.1) mmol/L Chloride 102 (96-114) mmol/L Carbon Dioxide 26 (20-32) mmol/L Anion Gap 9 (7-15) mEq/L BUN 11 (5-24) mg/dL Creatinine 0.6 (0.5-1.5) mg/dL Estimated Creat Clear 129.69 Estimated GFR 121 ml/min Glucose 104 (60-115) mg/dL Lactate 1.2 (0.5-1.9) mmol/L Calcium 8.9 (8.4-10.6) mg/dL Total Bilirubin 0.7 (0.1-1.5) mg/dL AST 23 (12-35) U/L ALT 21 (4-35) U/L Alkaline Phosphatase 57 (40-150) U/L C-Reactive Protein 2.7 H (0.5-1.0) mg/dL Total Protein 7.7 (6.0-8.3) g/dL Albumin 4.5 (3.3-5.0) g/dL Discharge Plan Discharge Clinical Impression: Migraine Patient Disposition: Home, Self-Care Condition: Improved Instructions: Migraine Headache (ED) Additional Instructions: Go home and rest. Make sure you are drinking frequent sips of fluid can continue with alternating Tylenol and ibuprofen per bottle directions for any residual symptoms. If your headache is continuing and not responsive to usual home medicines, have new or further concerns, please seek re-evaluation. Activity Level: Activity as Tolerated Prescriptions: No Action Classic 28 mg iron- 800 mcg tablet 1 tab PO DAILY cyanocobalamin (vitamin B-12) 2,500 mcg tablet 2,500 mcg PO QDAY epinephrine 0.3 mg/0.3 mL auto-injector 0.3 ml IM Q5-15M PRNQty: 2 0RF Rx Instructions: do not exceed 2 doses per episode sertraline 50 mg tablet 50 mg PO DAILY albuterol sulfate 90 mcg/actuation HFA aerosol inhaler 2 puff inhalation Q6-8H PRN (Reason: bronchospasm) Qty: 8.5 4RF Follow Up/Referrals: Rhoda Gusman MD [Primary Care Provider, Family Practice] Stand Alone Forms: [employer] Info Instructions
[2024-10-13 13:45] LABS: Hematocrit 42.7 % (33.0-51.0); Hemoglobin* 14.0 gm/dL (12.0-16.0); Immature Granulocytes Abs Auto 0.05 K/uL (0.00-0.30); Immature Granulocytes Pct Auto 0.7 %; Lactate* 1.2 mmol/L (0.5-1.9); Mean Corpuscular HGB Conc 33 gm/dL (32-36); Mean Corpuscular Hemoglobin 32 pg (26-34); Mean Corpuscular Volume 97 fL (80-100); RDW Coefficient of Variation % 12.4 % (11.5-15.5); Red Blood Count 4.40 m/uL (4.00-5.20); White Blood Count* 6.96 K/uL (4.50-11.00)
[2024-10-13 13:46] LABS: Lymphocytes Absolute Auto 1.30 K/uL (0.90-2.90); Slide Review Reflex No
[2024-10-13] MEDS: METOCLOPRAMIDE HCL 10 MG in 0.9 % SODIUM CHLORIDE 100 ml 100 ML 306 MG IVPB (13:48)
[2024-10-13 14:00] LABS: Albumin* 4.5 g/dL (3.3-5.0); Chloride* 102 mmol/L (96-114); Potassium* 4.0 mmol/L (3.6-5.1); Sodium* 137 mmol/L (135-149)
[2024-10-13 14:02] LABS: Blood Urea Nitrogen* 11 mg/dL (5-24); Creatinine* 0.6 mg/dL (0.5-1.5); Est. Creatinine Clearance* 129.69; Estimated Glomerular Filt Rate 121 ml/min
[2024-10-13 14:03] LABS: Alanine Aminotransferase* 21 U/L (4-35); Alkaline Phosphatase* 57 U/L (40-150); Anion Gap 9 mEq/L (7-15); Aspartate Amino Transferase* 23 U/L (12-35); Bilirubin Total* 0.7 mg/dL (0.1-1.5); Calcium* 8.9 mg/dL (8.4-10.6); Carbon Dioxide* 26 mmol/L (20-32); Glucose* 104 mg/dL (60-115); Total Protein* 7.7 g/dL (6.0-8.3)
[2024-10-13] MEDS: ONDANSETRON 2 MG/ML inj 4 MG IVP (14:11)
[2024-10-13] MEDS: LACTATED RINGERS 1000 ML 1,000 ML IV (14:53)
[2024-10-13 15:12] VITALS: BP 104/61; PULSE 62; RESP 16; TEMP 36.9; O2SAT 99
[2024-10-13] MEDS: DEXAMETHASONE 10 MG/ML PF IVP (16:21)
== END 2024-10-13 16:39 | disposition home or self-care (01) ==
PROVIDERS: Emergency Provider Family Medicine; PCP Family Medicine
DX: G43.909 Migraine, unspecified, not intractable, without status migrainosus (principal)
CPT/HCPCS: 36415; 80053; 83605; 85025; 86140; 96365; 96375; 99284; J1100; J1200; J1885; J2405; J2765; J7030; J7120